=== PATIENT | female | born 1975 | race Caucasian/White ===

== ENCOUNTER → 2020-02-20 09:41 | Outpatient (CLI) | payer OTHER, SELFPAY ==
[2020-02-21 20:30] LABS: COVID19 Sendout Not Detected (Not Detect)
== END ==
PROVIDERS: Visit Provider Nurse Practitioner
DX: Z11.59 Encounter for screening for other viral diseases (principal)
CPT/HCPCS: 87635

== ENCOUNTER → 2020-03-03 13:29 | Outpatient (CLI) | payer OTHER, SELFPAY ==
--- NOTE | 2020-03-03 13:30 | DI.RAD.S_ITS ---
PROCEDURE: XR CERVICAL SPINE 2V OR 3V INDICATIONS: Progressive neck pain TECHNIQUE: 3 view(s) of the cervical spine were acquired. COMPARISON: None. FINDINGS: Bones: No fracture. Cervical ACDF from C5-C7. Expected postoperative alignment. Hardware appears intact. Mild C7 T1 disc space narrowing. Diffuse facet arthropathy. Straightening of the normal lordotic curvature. Soft tissues: No prevertebral soft tissue swelling. IMPRESSION: Postoperative changes as above from C5-C7. Straightening of the normal lordotic curvature. Dictated by: Jesus Dean M.D. on 03/03/2020 at 14:46 Approved by: Jesus Dean M.D. on 03/03/2020 at 14:49
== END ==
PROVIDERS: PCP Family Medicine; Referring Provider Family Medicine; Visit Provider Family Medicine
DX: M54.2 Cervicalgia (principal); G89.29 Other chronic pain; Z98.1 Arthrodesis status
CPT/HCPCS: 72040

== ENCOUNTER → 2020-03-29 14:04 | Outpatient (CLI) | payer OTHER, SELFPAY ==
[2020-03-29 14:51] LABS: Add Manual Diff / Slide Review NO; Basophils Absolute Auto 100 /uL (0-100); Basophils Percent Auto 0.7 % (0-2); Eosinophils Absolute Auto 100 /uL (0-450); Eosinophils Percent Auto 1.4 % (2-4); Hematocrit 40.9 % (36-46); Hemoglobin 13.8 g/dL (12.0-16.0); Lymphocytes Absolute Auto 1800 /uL (1100-4500); Lymphocytes Percent Auto 19.9 % (25-40); Mean Corpuscular HGB Conc 33.6 % (30-36); Mean Corpuscular Hemoglobin 29.5 PG (26-34); Mean Corpuscular Volume 87.9 fL (80-100); Monocytes Absolute Auto 500 /uL (0-900); Monocytes Percent Auto 5.9 % (3-14); Neutrophils Absolute Auto 6600 /uL (1500-7000); Neutrophils Percent Auto 72.1 % (50-75); Platelet Count 354 X10^3/uL (150-400); Red Blood Cell Count 4.66 X10^6/uL (4.0-5.2); Red Cell Distribution Width 13.8 % (11.6-14.8); White Blood Cell Count 9.1 X10^3/uL (4.5-11.0)
[2020-03-29 15:12] LABS: Alanine Aminotransferase 15 IU/L (<35); Albumin 4.3 g/dL (3.5-5.0); Albumin Globulin Ratio 1.4 (1.0-2.8); Alkaline Phosphatase 65 U/L (38-126); Aspartate Aminotransferase 29 IU/L (14-36); BUN Creatinine Ratio 14.7 (6-22); Bilirubin Total 0.3 mg/dL (0.2-1.3); Blood Urea Nitrogen 10 mg/dL (7-17); Calcium 9.6 mg/dL (8.4-10.2); Carbon Dioxide 30 mmol/L (22-32); Chloride 102 mmol/L (98-107); Estimated Glomerular Filt Rate > 60.0 mL/min (>60); Globulin 3.1 g/dL (1.7-4.1); Glucose 89 mg/dL (70-100); HEMOLYSIS < 15 (0-50); Potassium 4.4 mmol/L (3.4-5.1); Sodium 137 mmol/L (137-145); Total Protein 7.4 g/dL (6.3-8.2)
[2020-03-29 15:36] LABS: TSH w/ Reflex to FT4 1.21 uIU/mL (0.47-4.68)
== END ==
PROVIDERS: PCP Family Medicine; Referring Provider Family Medicine; Visit Provider Family Medicine
DX: R53.83 Other fatigue (principal)
CPT/HCPCS: 36415; 80053; 84443; 85025

== ENCOUNTER → 2021-04-03 09:06 | Outpatient (CLI) | payer OTHER, SELFPAY ==
[2021-04-03 09:47] LABS: Add Manual Diff / Slide Review NO; Basophils Absolute Auto 100 /uL (0-100); Basophils Percent Auto 0.8 % (0-2); Eosinophils Absolute Auto 0 /uL (0-450); Eosinophils Percent Auto 0.6 % (2-4); Hematocrit 42.1 % (36-46); Lymphocytes Absolute Auto 1400 /uL (1100-4500); Lymphocytes Percent Auto 15.5 % (25-40); Mean Corpuscular HGB Conc 33.2 % (30-36); Mean Corpuscular Hemoglobin 28.6 PG (26-34); Mean Corpuscular Volume 86.3 fL (80-100); Monocytes Absolute Auto 400 /uL (0-900); Monocytes Percent Auto 4.8 % (3-14); Neutrophils Absolute Auto 6900 /uL (1500-7000); Neutrophils Percent Auto 78.3 % (50-75); Platelet Count 357 X10^3/uL (150-400); Red Blood Cell Count 4.88 X10^6/uL (4.0-5.2); Red Cell Distribution Width 13.9 % (11.6-14.8); White Blood Cell Count 8.7 X10^3/uL (4.5-11.0)
[2021-04-03 10:25] LABS: TSH w/ Reflex to FT4 1.37 uIU/mL (0.47-4.68)
[2021-04-03 10:43] LABS: Alanine Aminotransferase 13 IU/L (<35); Albumin 4.2 g/dL (3.5-5.0); Albumin Globulin Ratio 1.4 (1.0-2.8); Alkaline Phosphatase 75 U/L (38-126); Aspartate Aminotransferase 25 IU/L (14-36); BUN Creatinine Ratio 23.1 (6-22); Bilirubin Total 0.3 mg/dL (0.2-1.3); Blood Urea Nitrogen 18 mg/dL (7-17); Calcium 9.2 mg/dL (8.4-10.2); Carbon Dioxide 26 mmol/L (22-32); Chloride 102 mmol/L (98-107); Cholesterol 182 mg/dL (140-199); Estimated Glomerular Filt Rate > 60.0 mL/min (>60); Globulin 2.9 g/dL (1.7-4.1); Glucose 92 mg/dL (70-100); HDL Cholesterol 47 mg/dL (40-60); HEMOLYSIS < 15 (0-50); LDL Cholesterol Calculated 103 mg/dL (<100); Potassium 4.2 mmol/L (3.4-5.1); Sodium 136 mmol/L (137-145); Total Protein 7.1 g/dL (6.3-8.2); Triglycerides 162 mg/dL (35-150)
== END ==
PROVIDERS: PCP Family Medicine; Referring Provider Family Medicine; Visit Provider Family Medicine
DX: F90.0 Attention-deficit hyperactivity disorder, predominantly inattentive type (principal); E78.5 Hyperlipidemia, unspecified
CPT/HCPCS: 36415; 80053; 80061; 84443; 85025

== ENCOUNTER → 2021-07-07 14:01 | Outpatient (CLI) | payer OTHER, SELFPAY ==
--- NOTE | 2021-07-07 14:02 | DI.MG.S_ITS ---
BILATERAL DIGITAL SCREENING MAMMOGRAM 3D/2D WITH CAD: 07/07/2021 CLINICAL: Routine screening. Comparison is made to exams dated: 06/24/2019 mammogram, 06/10/2017 mammogram, and 03/28/2015 mammogram - outside facility. The tissue of both breasts is heterogeneously dense. This may lower the sensitivity of mammography. Current study was also evaluated with a Computer Aided Detection (CAD) system. No significant masses, calcifications, or other findings are seen in either breast. There has been no significant interval change. IMPRESSION: NEGATIVE There is no mammographic evidence of malignancy. A 1 year screening mammogram is recommended. This exam was interpreted at Station ID: [id number]. NOTE: For mammograms, a report in lay terms will be sent to the patient. Approximately 15% of breast malignancies will not be visualized mammographically. In the management of a palpable breast mass, a negative mammogram must not discourage biopsy of a clinically suspicious lesion. Electronically Signed By: Suleman Cisneros M.D., jr/amrit:07/09/2021 11:28:17 letter sent: Normal Exam ACR BI-RADS Category 1: Negative 3341F
== END ==
PROVIDERS: PCP Family Medicine; Referring Provider Family Medicine; Visit Provider Family Medicine
DX: Z12.31 Encounter for screening mammogram for malignant neoplasm of breast (principal)
CPT/HCPCS: 77063; 77067

== ENCOUNTER → 2021-11-03 07:29 | Outpatient (CLI) | payer OTHER, SELFPAY | PROVIDERS: PCP Family Medicine; Visit Provider Nurse Practitioner Family | DX: J02.9 Acute pharyngitis, unspecified (principal) | CPT/HCPCS: 87070 ==

== ENCOUNTER 2022-05-01 09:56 | Emergency (ER) | payer OTHER, SELFPAY ==
[2022-05-01 10:53] VITALS: BP 139/66; PULSE 82; RESP 16; TEMP 36; O2SAT 98; BMI 25.6
--- NOTE | 2022-05-01 10:59 | DI.RAD.S_ITS ---
PROCEDURE: XR FINGER RT MIN 2V INDICATIONS: crush injury TECHNIQUE: AP hand, 2 views of the 5th digit acquired. COMPARISON: None. FINDINGS: Bones: No fractures or dislocations. No suspicious bony lesions. Soft tissues: No suspicious soft tissue calcifications. Soft tissue swelling 5th digit IMPRESSION: No acute osseous abnormality. If symptoms persist, follow-up radiographs and/or CT may be helpful for further evaluation. Dictated by: Skip Cornelius M.D. on 05/01/2022 at 12:13 Approved by: Skip Cornelius M.D. on 05/01/2022 at 12:16
--- NOTE | 2022-05-01 15:59 | ED.UPPEXIN ---
HPI - Extremity Injury (Upper) <JIMENEZ Wolf - Last Filed: 05/01/22 16:52> General Chief Complaint: Extremity Injury, Upper Stated Complaint: Smashed pinky finger with 1-200 lb rock Time Seen by Provider: 05/01/22 15:10 Source: patient Mode of arrival: Wheelchair History of Present Illness HPI narrative: This is a 46-year-old female who presents to the emergency department after she somehow got her right pinky underneath a 100 lb rock. She states that her tetanus is likely out of date, complains of pain, has intact mobility without any sensation deficit, a laceration on the medial aspect over the D IP joint and bleeding is controlled. She denies any significant medical conditions or history of MRSA. She states that her finger swollen, it hurts, denies any sensation changes. Does not remember when her last tetanus was. Related Data Previous Rx's Medication Instructions Recorded atorvastatin 20 mg tablet 20 mg PO BEDTIME #90 tabs 06/20/21 citalopram 20 mg tablet 40 mg PO DAILY #180 tabs 06/29/21 methocarbamol 750 mg tablet 750 mg PO BEDTIME #30 tabs 07/17/21 hydrocodone 5 mg-acetaminophen 325 1 tab PO BID PRN pain #30 tabs 02/01/22 mg tablet etodolac 400 mg tablet 400 mg PO BID #180 tabs 03/29/22 levonorgestrel 0.15 mg-ethinyl 1 tab PO DAILY #91 ea 04/04/22 estradiol 30 mcg tablets,3 mos pack(91) lisdexamfetamine 50 mg capsule 50 mg PO DAILY #30 caps 04/29/22 (Vyvanse) hydrocodone 5 mg-acetaminophen 325 1 tab PO BID PRN pain #10 tabs 05/01/22 mg tablet ketorolac 10 mg tablet 10 mg PO TID PRN pain #20 tabs 05/01/22 mupirocin 2 % topical ointment 1 applic topical BID #15 grams 05/01/22 Allergies Allergy/AdvReac Type Severity Reaction Status Date / Time Sulfa (Sulfonamide Allergy Severe lips Verified 02/01/22 16:17 Antibiotics) swelling Review of Systems <JIMENEZ Wolf - Last Filed: 05/01/22 16:52> Review of Systems Narrative: Review of systems is negative for acute abnormalities unless otherwise noted in HPI Patient History <JIMENEZ Wolf - Last Filed: 05/01/22 16:52> Medical History ADHD (attention deficit hyperactivity disorder) Arthritis Chronic neck pain Depression Endometriosis Family history of breast cancer gene mutation in first degree relative Fatigue History of Lyme disease Hyperlipidemia Insomnia Pelvic pain Surgical History H/O cervical spine surgery H/O: hysterectomy Family History Father Diabetes mellitus Stroke Osteoarthritis Grandmother Osteoarthritis Heart disease Uterine cancer Sister Depression Fibromyalgia Cancer Social History Smoking Status: Never smoker alcohol intake: never Smoking Status: Never smoker Substance Use Type: does not use Exam <JIMENEZ Wolf - Last Filed: 05/01/22 16:52> Narrative Exam Narrative: Reviewed vitals signs and nursing notes. General: cooperative, comfortable, in no acute distress, well groomed HEENT: symmetrical facial expressions, moist mucous membranes MSK: moves all extremities, neurovascularly intact, no weakness, normal tone, laceration to the medial aspect of her right hand 5th digit over the D IP joint, approximately 1.5 cm, this was thoroughly irrigated with normal saline and cleaned by myself, laceration repair with 4 sutures was completed, patient was splinted in a finger splint in extension for protection, wound was covered with bacitracin. Patient has a brisk cap refill, flexion extension is intact and isolated each joint. Patient is right-handed Skin: brisk capillary refill, without pallor or erythema Neuro: normal speech and cognition, A&O x3, ambulatory, clear speech Psych: mental status is grossly normal, congruent mood, normal affect, pleasant and cooperative Initial Vital Signs Initial Vital Signs: Vital Signs Temperature 96.8 F L 05/01/22 10:53 Pulse Rate 82 05/01/22 10:53 Respiratory Rate 16 05/01/22 10:53 Blood Pressure 139/66 05/01/22 10:53 Pulse Oximetry 98 05/01/22 10:53 Oxygen Delivery Method 05/01/22 10:53 <Leila Wisdom DO - Last Filed: 05/01/22 20:36> Initial Vital Signs Initial Vital Signs: Vital Signs Temperature 96.8 F L 05/01/22 10:53 Pulse Rate 82 05/01/22 10:53 Respiratory Rate 16 05/01/22 10:53 Blood Pressure 139/66 05/01/22 10:53 Pulse Oximetry 98 05/01/22 10:53 Oxygen Delivery Method 05/01/22 10:53 Procedures <JIMENEZ Wolf - Last Filed: 05/01/22 16:52> Laceration Repair Laceration 1: Site: hand Side (If applicable): right Size (cm): 1.5 Description: flap Depth: simple, single layer Local Anesthetic: lidocaine 1% Amount of anesthesia used (mL): 3 Pre-repair: wound explored, irrigated extensively and deep structures intact Skin layer closed with: nylon Skin layer suture size: 5-0 Number of sutures: 4 Technique: simple, interrupted Course <JIMENEZ Wolf - Last Filed: 05/01/22 16:52> Orders Ordered: Discontinued Medications Hydrocodone Bitart/Acetaminophen (Hydrocodone/Acet 5/325 Tablet) 1 tab PO NOW ONE Stop: 05/01/22 15:35 Last Admin: 05/01/22 16:09 Dose: 1 tab Documented By: BT Bacitracin (Bacitracin Oint 0.9 Gm Pckt) 1 applic TOP NOW ONE Stop: 05/01/22 15:37 Last Admin: 05/01/22 16:08 Dose: 1 applic Documented By: BT Diphtheria/Tetanus/Acell Pertussis (Tet,Diph,Pertuss(Acell),Vac/Pf 0.5 Ml Syringe) 0.5 ml IM .ONCE ONE Stop: 05/01/22 15:35 Last Admin: 05/01/22 16:09 Dose: 0.5 ml Documented By: BT Ketorolac Tromethamine (Ketorolac 30 Mg/Ml Vial) 15 mg IM NOW ONE Stop: 05/01/22 15:35 Last Admin: 05/01/22 16:08 Dose: 15 mg Documented By: BT Lidocaine HCl (Lidocaine 2% Inj Sdv) 5 ml INJ INTRA-OP ONE Stop: 05/01/22 15:35 Last Admin: 10/12/22 16:08 Dose: 5 ml Documented By: BT Vital Signs Vital signs: Vital Signs - 8 hr 05/01/22 16:55 Pulse Rate 79 Respiratory Rate 16 Blood Pressure 129/71 Pulse Oximetry 99 Oxygen Delivery Method Room Air <Leila Wisdom DO - Last Filed: 05/01/22 20:36> Orders Ordered: Discontinued Medications Hydrocodone Bitart/Acetaminophen (Hydrocodone/Acet 5/325 Tablet) 1 tab PO NOW ONE Stop: 05/01/22 15:35 Last Admin: 05/01/22 16:09 Dose: 1 tab Documented By: BT Bacitracin (Bacitracin Oint 0.9 Gm Pckt) 1 applic TOP NOW ONE Stop: 05/01/22 15:37 Last Admin: 05/01/22 16:08 Dose: 1 applic Documented By: BT Diphtheria/Tetanus/Acell Pertussis (Tet,Diph,Pertuss(Acell),Vac/Pf 0.5 Ml Syringe) 0.5 ml IM .ONCE ONE Stop: 05/01/22 15:35 Last Admin: 05/01/22 16:09 Dose: 0.5 ml Documented By: BT Ketorolac Tromethamine (Ketorolac 30 Mg/Ml Vial) 15 mg IM NOW ONE Stop: 05/01/22 15:35 Last Admin: 05/01/22 16:08 Dose: 15 mg Documented By: BT Lidocaine HCl (Lidocaine 2% Inj Sdv) 5 ml INJ INTRA-OP ONE Stop: 05/01/22 15:35 Last Admin: 05/01/22 16:08 Dose: 5 ml Documented By: BT Vital Signs Vital signs: Vital Signs - 8 hr 05/01/22 16:55 Pulse Rate 79 Respiratory Rate 16 Blood Pressure 129/71 Pulse Oximetry 99 Oxygen Delivery Method Room Air MDM - Extremity Injury (Upper) <ALEX WolfP - Last Filed: 05/01/22 16:52> Imaging Data Extremity x-ray #1: Radiologist's Impression: PROCEDURE:? XR FINGER RT MIN 2V ? INDICATIONS:? crush injury ? TECHNIQUE:? AP hand, 2 views of the 5th digit? acquired.? ? COMPARISON:? None. ? FINDINGS:? ? Bones:? No fractures or dislocations.? No suspicious bony lesions.? ? Soft tissues:? No suspicious soft tissue calcifications.? Soft tissue swelling 5th digit ? IMPRESSION:? No acute osseous abnormality.? If symptoms persist, follow-up radiographs and/or CT may be helpful for further evaluation. ? ? Dictated by: Skip Cornelius M.D. on 05/01/2022 at 12:13 ? ? Approved by: Skip Cornelius M.D. on 05/01/2022 at 12:16 ? [facility] Narrative Medical decision making narrative: This is a 46-year-old female patient with a crush injury to her right hand little finger over the D IP joint, laceration was not avulsion with a superficial flap, this was mildly debrided and wound closure was completed with nylon sutures. Patient received 4 sutures, repair was uncomplicated, she received a tetanus vaccination, x-ray was negative for foreign body or acute fracture. Patient is right-handed, given topical mupirocin ointment and Toradol with Tylenol for pain. Encouraged to return if she has any redness or streaking up her hand, worsening signs of pain, her finger was splinted in a finger splint after wound was dressed with bacitracin and a nonstick dressing. Patient understands her discharge instructions and will return for any worsening. <Leila Wisdom, DO - Last Filed: 05/01/22 20:36> [facility] Narrative Medical decision making narrative: This is a 46-year-old female patient with a crush injury to her right hand little finger over the D IP joint, laceration was not avulsion with a superficial flap, this was mildly debrided and wound closure was completed with nylon sutures. Patient received 4 sutures, repair was uncomplicated, she received a tetanus vaccination, x-ray was negative for foreign body or acute fracture. Patient is right-handed, given topical mupirocin ointment and Toradol with Tylenol for pain. Encouraged to return if she has any redness or streaking up her hand, worsening signs of pain, her finger was splinted in a finger splint after wound was dressed with bacitracin and a nonstick dressing. Patient understands her discharge instructions and will return for any worsening. Discharge Plan Departure Patient Disposition: Home Clinical Impression: Laceration Crush injury to finger Qualifiers: Encounter type: initial encounter Qualified Code(s): S67.10XA - Crushing injury of unspecified finger(s), initial encounter Instructions: DI for Laceration Repair -- Finger Activity Restrictions/Additional Instructions: *You have been diagnosed with a crush injury to your right little finger without evidence of fracture or foreign body on x-ray. You have 4 sutures in your right little finger, please keep this covered with a nonstick dressing, you may use a Band-Aid with antibiotic ointment after today, please wounds with gentle cleanser a.m. and p.m. and keep it covered with at least a Band-Aid at all times. You can use the finger splint to prevent worsening injury of the tissue where the injury is. Please have your sutures removed in 10 days, return for any redness or streaking up your hand, concerns for infection, or other symptom. Thank you for your patients, your tetanus was updated today, please use Toradol every 8 hours with food and water instead of ibuprofen for pain, take her hydrocodone as needed. *What to do: *Please continue to take your regular medications as directed. [ x] New medication prescriptions sent to your pharmacy: [[facility] ] [ ] New medication written as a paper prescription [ ] No new medications given *Please follow up with your primary care provider in 2-3 days, call for an appointment. Let them know you were seen in the Emergency Department and that we asked that you be seen for follow-up. We will electronically transmit a record of today's note if your PCP is in our system *If you do not have a primary care provider please contact [phone] to establish care with one of the [facility] primary care providers. *Return to Emergency Department if you should have any new, worsening, or concerning symptoms, such as [fever greater than 101F, chills, worsening pain, persistent vomiting or other bothersome symptoms]. Prescriptions: New hydrocodone-acetaminophen 5-325 mg tablet 1 tab PO BID PRN (Reason: pain) Qty: 10 0RF ketorolac 10 mg tablet 10 mg PO TID PRN (Reason: pain) Qty: 20 0RF mupirocin 2 % ointment 1 applic topical BID Qty: 15 0RF No Action citalopram 20 mg tablet 40 mg PO DAILY Qty: 180 1RF methocarbamol 750 mg tablet 750 mg PO BEDTIME Qty: 30 2RF etodolac 400 mg tablet 400 mg PO BID Qty: 180 1RF levonorgestrel-ethinyl estrad 0.15 mg-30 mcg (91) tablets,dose pack,3 month 1 tab PO DAILY Qty: 91 2RF Vyvanse 50 mg capsule 50 mg PO DAILY Qty: 30 0RF atorvastatin 20 mg tablet 20 mg PO BEDTIME Qty: 90 3RF hydrocodone-acetaminophen 5-325 mg tablet 1 tab PO BID PRN (Reason: pain) Qty: 30 0RF Referrals: Rocael Villanueva DO [Primary Care Provider] - Visit Report Forms: Patient Portal/API
[2022-05-01] MEDS: KETOROLAC 30 MG/ML VIAL 15 MG IM (16:08)
[2022-05-01] MEDS: BACITRACIN OINT 0.9 GM PCKT 1 APPLIC TOP (16:08)
[2022-05-01] MEDS: LIDOCAINE 2% INJ SDV 5 ML INJ (16:08)
[2022-05-01] MEDS: TET,DIPH,PERTUSS(ACELL),VAC/PF 0.5 ML SYRINGE IM (16:09)
[2022-05-01] MEDS: HYDROCODONE/ACET 5/325 TABLET 1 TAB PO (16:09)
[2022-05-01 16:55] VITALS: BP 129/71; PULSE 79; RESP 16; O2SAT 99
== END 2022-05-01 16:57 | disposition home or self-care (01) ==
PROVIDERS: Emergency Provider Nurse Practitioner Critical Care Medicine; PCP Family Medicine
DX: S61.216A Laceration without foreign body of right little finger without damage to nail, initial encounter (principal); S67.10XA Crushing injury of unspecified finger(s), initial encounter; Z23 Encounter for immunization
CPT/HCPCS: 12001; 29130; 73140; 90471; 96372; 99283; 99284; 90715; J1885

== ENCOUNTER → 2022-07-09 10:27 | Outpatient (CLI) | payer OTHER, SELFPAY ==
--- NOTE | 2022-07-09 10:28 | DI.MG.S_ITS ---
BILATERAL DIGITAL SCREENING MAMMOGRAM 3D/2D WITH CAD: 07/09/2022 CLINICAL: Routine screening. Family history of breast cancer. Comparison is made to exams dated: 07/07/2021 mammogram - [facility], 06/24/2019 mammogram, 06/10/2017 mammogram, and 03/28/2015 mammogram - outside facility. Both breasts are heterogeneously dense, which may obscure small masses (category c / 51-75% glandular tissue). Current study was also evaluated with a Computer Aided Detection (CAD) system. No significant masses, calcifications, or other findings are seen in either breast. There has been no significant interval change. IMPRESSION: NEGATIVE There is no mammographic evidence of malignancy. A 1 year screening mammogram is recommended. Based on Tyrer-Cuzick model (a risk assessment model), the patient's lifetime risk is 22.4% and her 10 year risk is 4.1%. If a patient has an elevated risk, a more comprehensive evaluation should be considered and/or a referral to a genetic counselor. The [place] [employer], [place] [employer], and NCCN Guidelines advise the consideration of Breast MRI as an adjunct to screening mammography in patients whose Lifetime risk to develop breast cancer is 20% or higher. This exam was interpreted at Station ID: [id number]. NOTE: For mammograms, a report in lay terms will be sent to the patient. Approximately 15% of breast malignancies will not be visualized mammographically. In the management of a palpable breast mass, a negative mammogram must not discourage biopsy of a clinically suspicious lesion. Electronically Signed By: Ron alfonso/amrit:07/09/2022 12:07:41 letter sent: Normal Exam ACR BI-RADS Category 1: Negative [id number]
== END ==
PROVIDERS: PCP Family Medicine; Referring Provider Family Medicine; Visit Provider Family Medicine
DX: Z12.31 Encounter for screening mammogram for malignant neoplasm of breast (principal); Z84.81 Family history of carrier of genetic disease; Z80.3 Family history of malignant neoplasm of breast
CPT/HCPCS: 77063; 77067

== ENCOUNTER 2022-10-01 15:30 | Emergency (ER) | payer OTHER, SELFPAY ==
[2022-10-01 15:43] VITALS: BP 167/82; PULSE 92; RESP 16; TEMP 37.3; O2SAT 100; BMI 25.6
--- NOTE | 2022-10-01 15:47 | DI.RAD.S_ITS ---
PROCEDURE: XR CHEST 1V INDICATIONS: chest pain TECHNIQUE: One view of the chest was acquired. COMPARISON: None. FINDINGS: Surgical changes and devices: None. Lungs and pleura: Lungs are clear. No pleural effusions or pneumothorax. Mediastinum: Mediastinal contours appear normal. Heart size is normal. Bones and chest wall: No suspicious bony lesions. Overlying soft tissues appear unremarkable. IMPRESSION: No acute cardiopulmonary process demonstrated radiographically. Dictated by: Suleman Cisneros M.D. on 10/01/2022 at 17:38 Approved by: Suleman Cisneros M.D. on 10/01/2022 at 17:39
[2022-10-01 16:02] LABS: Add Manual Diff / Slide Review NO; Basophils Absolute Auto 100 /uL (0-100); Basophils Percent Auto 0.5 % (0-2); Eosinophils Absolute Auto 100 /uL (0-450); Eosinophils Percent Auto 1.5 % (2-4); Hematocrit 40.4 % (36-46); Hemoglobin 13.9 g/dL (12.0-16.0); Lymphocytes Absolute Auto 2500 /uL (1100-4500); Lymphocytes Percent Auto 25.5 % (25-40); Mean Corpuscular HGB Conc 34.3 % (30-36); Mean Corpuscular Hemoglobin 29.6 PG (26-34); Mean Corpuscular Volume 86.4 fL (80-100); Monocytes Absolute Auto 600 /uL (0-900); Neutrophils Absolute Auto 6400 /uL (1500-7000); Neutrophils Percent Auto 66.5 % (50-75); Platelet Count 389 X10^3/uL (150-400); Red Blood Cell Count 4.68 X10^6/uL (4.0-5.2); White Blood Cell Count 9.7 X10^3/uL (4.5-11.0)
[2022-10-01 16:07] LABS: Prothrombin Time 11.3 SECONDS (10.1-12.7)
[2022-10-01 16:10] LABS: PTT Partial Thromboplastin Tim 28 SECONDS (26-36)
[2022-10-01 16:12] LABS: Alanine Aminotransferase 18 IU/L (<35); Albumin 4.3 g/dL (3.5-5.0); Albumin Globulin Ratio 1.3 (1.0-2.8); Alkaline Phosphatase 64 U/L (38-126); Aspartate Aminotransferase 27 IU/L (14-36); BUN Creatinine Ratio 16.7 (6-22); Bilirubin Total 0.4 mg/dL (0.2-1.3); Blood Urea Nitrogen 12 mg/dL (7-17); Calcium 8.7 mg/dL (8.4-10.2); Carbon Dioxide 23 mmol/L (22-32); Chloride 104 mmol/L (98-107); Creatine Kinase 136 U/L (30-135); Estimated Glomerular Filt Rate > 60 mL/min (>60); Globulin 3.2 g/dL (1.7-4.1); Glucose 82 mg/dL (70-100); HEMOLYSIS < 15 (0-50); Lipase 1848 U/L (23-300); Magnesium 2.2 mg/dL (1.6-2.3); Potassium 3.6 mmol/L (3.4-5.1); Sodium 136 mmol/L (137-145); Total Protein 7.5 g/dL (6.3-8.2)
[2022-10-01 16:23] LABS: Troponin I < 0.012 ng/mL (0.01-0.034)
[2022-10-01 16:26] LABS: CKMB % Relative Index 0.4 % (1.5-5.0); Creatine Kinase MB 0.58 ng/mL (<2.37)
--- NOTE | 2022-10-01 17:37 | PC.NURSE ---
pt VDC wanted IV out took IV out pt tolerated procedure well
== END 2022-10-01 17:35 | disposition left against medical advice (07) ==
PROVIDERS: Emergency Provider Emergency Medicine; PCP Family Medicine
DX: R07.9 Chest pain, unspecified (principal); M54.2 Cervicalgia; R06.02 Shortness of breath
CPT/HCPCS: 36415; 71045; 80053; 82550; 82553; 83690; 83735; 84484; 85025; 85610; 85730; 93005; 93010; 99283

== ENCOUNTER → 2022-10-03 09:13 | Outpatient (CLI) | payer OTHER, SELFPAY ==
[2022-10-03 09:54] LABS: Add Manual Diff / Slide Review NO; Basophils Absolute Auto 0 /uL (0-100); Basophils Percent Auto 0.5 % (0-2); Eosinophils Absolute Auto 100 /uL (0-450); Eosinophils Percent Auto 0.8 % (2-4); Hematocrit 41.9 % (36-46); Hemoglobin 14.4 g/dL (12.0-16.0); Lymphocytes Absolute Auto 1300 /uL (1100-4500); Lymphocytes Percent Auto 14.7 % (25-40); Mean Corpuscular HGB Conc 34.3 % (30-36); Mean Corpuscular Hemoglobin 29.8 PG (26-34); Mean Corpuscular Volume 86.9 fL (80-100); Monocytes Absolute Auto 400 /uL (0-900); Monocytes Percent Auto 4.9 % (3-14); Neutrophils Absolute Auto 7000 /uL (1500-7000); Neutrophils Percent Auto 79.1 % (50-75); Platelet Count 383 X10^3/uL (150-400); Red Blood Cell Count 4.82 X10^6/uL (4.0-5.2); Red Cell Distribution Width 13.8 % (11.6-14.8); White Blood Cell Count 8.9 X10^3/uL (4.5-11.0)
[2022-10-03 10:17] LABS: Alanine Aminotransferase 17 IU/L (<35); Albumin 4.3 g/dL (3.5-5.0); Albumin Globulin Ratio 1.3 (1.0-2.8); Alkaline Phosphatase 68 U/L (38-126); Aspartate Aminotransferase 26 IU/L (14-36); Bilirubin Total 0.4 mg/dL (0.2-1.3); Blood Urea Nitrogen 14 mg/dL (7-17); Calcium 8.9 mg/dL (8.4-10.2); Carbon Dioxide 28 mmol/L (22-32); Chloride 103 mmol/L (98-107); Estimated Glomerular Filt Rate > 60 mL/min (>60); Globulin 3.3 g/dL (1.7-4.1); Glucose 92 mg/dL (70-100); HEMOLYSIS < 15 (0-50); Lipase 1133 U/L (23-300); Potassium 4.2 mmol/L (3.4-5.1); Sodium 137 mmol/L (137-145); Total Protein 7.6 g/dL (6.3-8.2)
== END ==
PROVIDERS: PCP Family Medicine; Referring Provider Family Medicine; Visit Provider Family Medicine
DX: K85.90 Acute pancreatitis without necrosis or infection, unspecified (principal); R53.83 Other fatigue
CPT/HCPCS: 36415; 80053; 83690; 85025

== ENCOUNTER → 2022-10-04 08:40 | Outpatient (CLI) | payer OTHER, SELFPAY ==
--- NOTE | 2022-10-04 08:41 | DI.US.S_ITS ---
PROCEDURE: US ABDOMEN COMPLETE INDICATIONS: ELEVATE LIPASE, ACUTE PANCREATITIS TECHNIQUE: Real-time scanning was performed of the abdominal and retroperitoneal organs, with image documentation. COMPARISON: None. FINDINGS: Liver: Liver is normal in size and homogeneous in echotexture. Gallbladder: No gallstones, wall thickening, or sonographic Moreira sign. Biliary ducts: Intrahepatic bile ducts are non-dilated. Extrahepatic bile duct caliber measures 3 mm. Normal is 6-7 mm or less in diameter, or 10 mm or less post-cholecystectomy. Pancreas: Visualized portions of the pancreas are sonographically normal. Spleen: Spleen is normal in size and homogeneous in echotexture. Kidneys: Kidneys are normal in size and echotexture. Right kidney measures 9.5 cm long; left kidney measures 10.1 cm long. No hydronephrosis or nephrolithiasis. No solid masses. Aorta: Visualized aorta is normal in caliber at less than 3 cm. Iliacs: Proximal common iliac arteries are normal in caliber at less than 2.5 cm. IVC: Intrahepatic inferior vena cava is patent. Miscellaneous: No free abdominal fluid. IMPRESSION: Unremarkable abdominal ultrasound. Dictated by: Skip Cornelius M.D. on 10/04/2022 at 9:41 Approved by: Skip Cornelius M.D. on 10/04/2022 at 9:49
== END ==
PROVIDERS: PCP Family Medicine; Referring Provider Family Medicine; Visit Provider Family Medicine
DX: K85.90 Acute pancreatitis without necrosis or infection, unspecified (principal)
CPT/HCPCS: 76700

== ENCOUNTER 2022-10-10 12:22 | Emergency (ER) | payer OTHER, SELFPAY ==
[2022-10-10] VITALS (8 sets, daily range): BP systolic 107–144; BP diastolic 66–81; PULSE 64–95; RESP 16–17; TEMP 36.4; O2SAT 97–100; BMI 25.6
--- NOTE | 2022-10-10 13:01 | DI.CT.S_ITS ---
PROCEDURE: CT ABDOMEN PELVIS W CON INDICATIONS: abd pain, pancreatitis TECHNIQUE: After the administration of oral and IV contrast, axial sections were acquired from the lung bases to the pubic symphysis. Coronal and sagittal reformats were performed. For radiation dose reduction, the following was used: automated exposure control, adjustment of mA and/or kV according to patient size. COMPARISON: [facility], , US ABDOMEN COMPLETE, 10/04/2022, 8:55. FINDINGS: Image quality: Excellent. Lung bases: Unremarkable. Heart: No significant findings. ABDOMEN: Liver: Unremarkable. Gallbladder: Unremarkable. Biliary ducts: Unremarkable. Pancreas: Unremarkable. Spleen: Unremarkable. Adrenal Glands: Unremarkable. Kidneys and Ureters: Suspect small 1-2 mm nonobstructive renal calculi bilaterally. No hydronephrosis. Kidneys are normal in size and enhance symmetrically. Stomach and Bowel: Stomach, small bowel loops, and colon are normal in caliber. There is a moderate amount of stool in colon. Peritoneum: No abnormal intraperitoneal fluid. No free air. Ventral Wall: No hernia. Abdominal Nodes: No retroperitoneal or mesenteric adenopathy by size criteria. Vessels: Aorta and inferior vena cava are normal in size. PELVIS: Pelvic Organs: There are several enhancing nodules in uterus, most likely uterine fibroids. Bladder: Unremarkable. Pelvic Nodes: No enlarged lymph nodes. Miscellaneous: No inguinal hernias are seen. Bones: There is a small indeterminate sclerotic focus in the superior endplate of T11. IMPRESSION: 1. Normal CT appearance of pancreas, which does not exclude clinical pancreatitis. No findings to suggest pancreatic necrosis. No pancreatic duct dilation, calcification or pseudocysts. 2. Suspect bilateral small nonobstructive renal calculi. 3. A moderate amount of stool in colon. 4. Enhancing nodules injuries are most likely uterine fibroids. Dictated by: Eliane Klein M.D. on 10/10/2022 at 13:21 Approved by: Eliane Klein M.D. on 10/10/2022 at 13:26
[2022-10-10 13:03] LABS: Add Manual Diff / Slide Review NO; Basophils Absolute Auto 100 /uL (0-100); Basophils Percent Auto 0.7 % (0-2); Eosinophils Absolute Auto 100 /uL (0-450); Eosinophils Percent Auto 1.2 % (2-4); Hematocrit 39.7 % (36-46); Hemoglobin 13.5 g/dL (12.0-16.0); Lymphocytes Absolute Auto 2200 /uL (1100-4500); Lymphocytes Percent Auto 23.6 % (25-40); Mean Corpuscular Hemoglobin 29.5 PG (26-34); Mean Corpuscular Volume 86.7 fL (80-100); Monocytes Absolute Auto 500 /uL (0-900); Monocytes Percent Auto 5.6 % (3-14); Neutrophils Absolute Auto 6300 /uL (1500-7000); Neutrophils Percent Auto 68.9 % (50-75); Platelet Count 357 X10^3/uL (150-400); Red Blood Cell Count 4.58 X10^6/uL (4.0-5.2); Red Cell Distribution Width 13.8 % (11.6-14.8); White Blood Cell Count 9.2 X10^3/uL (4.5-11.0)
[2022-10-10 13:15] LABS: Alanine Aminotransferase 16 IU/L (<35); Albumin Globulin Ratio 1.3 (1.0-2.8); Alkaline Phosphatase 56 U/L (38-126); Aspartate Aminotransferase 23 IU/L (14-36); BUN Creatinine Ratio 15.2 (6-22); Bilirubin Total 0.3 mg/dL (0.2-1.3); Blood Urea Nitrogen 10 mg/dL (7-17); Calcium 8.4 mg/dL (8.4-10.2); Carbon Dioxide 26 mmol/L (22-32); Chloride 103 mmol/L (98-107); Estimated Glomerular Filt Rate > 60 mL/min (>60); Globulin 3.1 g/dL (1.7-4.1); Glucose 131 mg/dL (70-100); HEMOLYSIS < 15 (0-50); Lipase 148 U/L (23-300); Potassium 3.6 mmol/L (3.4-5.1); Sodium 136 mmol/L (137-145); Total Protein 7.1 g/dL (6.3-8.2)
[2022-10-10 13:19] LABS: Ictotest Urine Positive (Negative)
[2022-10-10] MEDS: SODIUM CHLORIDE 0.9% 500 ML 1000 ML IV (14:13)
[2022-10-10] MEDS: METOCLOPRAMIDE 10 MG/2 ML INJ IV (14:13)
--- NOTE | 2022-10-14 21:36 | ED.ABDPAIN ---
HPI - Abdominal Pain General Chief Complaint: Abdominal Pain Stated Complaint: Thinks blockage Time Seen by Provider: 10/10/22 12:55 Source: patient Mode of arrival: Ambulatory History of Present Illness HPI narrative: 47-year-old female presenting with abdominal pain in the setting of recently diagnosed pancreatitis. Patient reports persistent diffuse upper abdominal pain, intermittent nausea and vomiting, no measured fevers, some abdominal bloating. Patient has had stools up until today. Related Data Previous Rx's Medication Instructions Recorded citalopram 20 mg tablet 40 mg PO DAILY #180 tabs 05/15/22 methocarbamol 750 mg tablet 750 mg PO BEDTIME #30 tabs 05/17/22 atorvastatin 20 mg tablet 20 mg PO BEDTIME #90 tabs 06/25/22 etodolac 400 mg tablet 400 mg PO BID #180 tabs 06/25/22 hydrocodone 5 mg-acetaminophen 325 1 tab PO BID PRN pain #30 tabs 07/23/22 mg tablet levonorgestrel 0.15 mg-ethinyl 1 tab PO DAILY #91 ea 09/20/22 estradiol 30 mcg tablets,3 mos pack(91) lisdexamfetamine 50 mg capsule 50 mg PO DAILY #30 caps 10/01/22 (Vyvanse) ondansetron HCl 8 mg tablet 8 mg PO Q12H PRN nausea and 10/07/22 vomiting #20 tabs Allergies Allergy/AdvReac Type Severity Reaction Status Date / Time Sulfa (Sulfonamide Allergy Severe lips Verified 10/10/22 12:25 Antibiotics) swelling Patient History Medical History ADHD (attention deficit hyperactivity disorder) Arthritis Chronic neck pain Depression Endometriosis Family history of breast cancer gene mutation in first degree relative Fatigue History of Lyme disease Hyperlipidemia Insomnia Keloid scar Pancreatitis, acute Pelvic pain Surgical History H/O cervical spine surgery H/O: hysterectomy Family History Father Diabetes mellitus Stroke Osteoarthritis Grandmother Osteoarthritis Heart disease Uterine cancer Sister Depression Fibromyalgia Cancer Social History Smoking Status: Never smoker alcohol intake: never Smoking Status: Never smoker alcohol intake frequency: holidays/special occasions only Substance Use Type: does not use Exam Narrative Exam Narrative: Vitals reviewed. Nursing note reviewed Constitutional: interactive HENT: Moist mucous membranes EYES: No scleral icterus NECK: no masses CV: Well perfused peripherally, no cyanosis present PULM: Unlabored respirations, symmetric chest rise ABD: Non-distended MS: No gross deformities, no asymmetric edema noted SKIN: Warm and dry. PSYCH: Appropriate affect NEURO: Follows simple commands, moves extremities, interactive with exam Initial Vital Signs Initial Vital Signs: Vital Signs Temperature 97.6 F 10/10/22 12:25 Pulse Rate 95 H 10/10/22 12:25 Respiratory Rate 16 10/10/22 12:25 Blood Pressure 144/76 H 10/10/22 12:25 Pulse Oximetry 100 10/10/22 12:25 Oxygen Delivery Method Room Air 10/10/22 12:25 Course Orders Ordered: Discontinued Medications Sodium Chloride (Normal Saline 0.9%) 500 mls @ 1,000 mls/hr IV BOLUS ONE Stop: 10/10/22 14:21 Last Infusion: 10/10/22 15:00 Dose: 0 mls/hr Documented By: Admin: 10/10/22 14:13 Dose: 1,000 mls/hr Documented By: RB Metoclopramide HCl (Metoclopramide 10 Mg/2 Ml Inj) 10 mg IV NOW ONE Stop: 10/10/22 13:53 Last Admin: 10/10/22 14:13 Dose: 10 mg Documented By: CORY Ondansetron HCl (Ondansetron 4 Mg/2 Ml Inj) 4 mg IV NOW PRN PRN Reason: Nausea And Vomiting MDM - Abdominal Pain Lab Data 10/10/22 12:35 10/10/22 12:35 Labs: Lab Results 10/10/22 10/10/22 10/10/22 Range/Units 12:35 12:35 12:43 WBC 9.2 (4.5-11.0) X10^3/uL RBC 4.58 (4.0-5.2) X10^6/uL Hgb 13.5 (12.0-16.0) g/dL Hct 39.7 (36-46) % MCV 86.7 (80-100) fL MCH 29.5 (26-34) PG MCHC 34.0 (30-36) % RDW 13.8 (11.6-14.8) % Plt Count 357 (150-400) X10^3/uL Neut % (Auto) 68.9 (50-75) % Lymph % (Auto) 23.6 L (25-40) % [place] % (Auto) 5.6 (3-14) % Eos % (Auto) 1.2 L (2-4) % Baso % (Auto) 0.7 (0-2) % Neut # (Auto) 6300 (3405-1089) /uL Lymph # (Auto) 2200 (3841-8701) /uL [place] # (Auto) 500 (0-900) /uL Eos # (Auto) 100 (0-450) /uL Baso # (Auto) 100 (0-100) /uL Sodium 136 L (137-145) mmol/L Potassium 3.6 (3.4-5.1) mmol/L Chloride 103 (98-107) mmol/L Carbon Dioxide 26 (22-32) mmol/L BUN 10 (7-17) mg/dL Creatinine 0.66 (0.52-1.04) mg/dL Estimated GFR > 60 (>60) mL/min BUN/Creatinine Ratio 15.2 (6-22) Glucose 131 H (70-100) mg/dL Calcium 8.4 (8.4-10.2) mg/dL Total Bilirubin 0.3 (0.2-1.3) mg/dL AST 23 (14-36) IU/L ALT 16 (<35) IU/L Alkaline Phosphatase 56 (38-126) U/L Total Protein 7.1 (6.3-8.2) g/dL Albumin 4.0 (3.5-5.0) g/dL Globulin 3.1 (1.7-4.1) g/dL Albumin/Globulin Ratio 1.3 (1.0-2.8) Lipase 148 D (23-300) U/L Ur Bilirubin Confirm Positive H (Negative) Point of care testing: Point of Care Testing Test Results Negative Urine Dip Bedside Urine Glucose Negative Bedside Urine Bilirubin +++ 4 Bedside Urine Ketone - Negative Urine Specific [place] 1.010 Bedside Urine Occult Blood - Negative Bedside Urine pH 6.5 Bedside Urine Protein - Negative Bedside Urine Urobilinogen - Negative Bedside Urine Nitrite - Negative Bedside Urine Leukocytes - Negative Esterase MDM Narrative Medical decision making narrative: 47-year-old female presenting with abdominal pain in the setting of recently diagnosed pancreatitis. On presentation, vital signs reassuring. Physical exam notable for alert and interactive 47-year-old female who is in no acute distress, reassuring cardiopulmonary exam, benign abdomen. Initial concern for recurrent pancreatitis, biliary pathology, peptic ulcer disease/gastritis, electrolyte derangement, metabolic abnormality, occult sepsis. Broad screening labs were obtained and notable for normalization of the patient's lipase, no leukocytosis or significant left shift, grossly reassuring CMP. CT imaging was obtained to further evaluate for acute emergent intra-abdominal pathology in the setting of recent pancreatitis, this is reassuring without evidence of emergent pathology. Discussed findings with patient at bedside. Patient's symptoms were controlled with IV pain medications and on repeat assessment, patient with significant improvement in symptoms. Discussed plan for discharge and close outpatient follow up. Patient was instructed to maintain a low threshold to return to the emergency department and follow up closely Discharge Plan Departure Patient Disposition: Home Clinical Impression: Abdominal pain Instructions: Acute Abdominal Pain Activity Restrictions/Additional Instructions: *You have been diagnosed with [ ] *What to do: *Please follow up with your primary care provider in 2-3 days, call for an appointment. Let them know you were seen in the Emergency Department and that we ask that you be seen in follow up. We will electronically transmit a record of today's note if your PCP is in our system *If you do not have a primary care provider please contact the [facility] Resource line at [phone]. They will ask some questions about your medical history and help get you set up with a doctor in the community. *Return to Emergency Department if you should have any new, worsening or concerning symptoms, such as [fever greater than 101 F, shaking chills, worsening pain, persistent vomiting or other bothersome symptoms] Prescriptions: No Action citalopram 20 mg tablet 40 mg PO DAILY Qty: 180 1RF methocarbamol 750 mg tablet 750 mg PO BEDTIME Qty: 30 2RF atorvastatin 20 mg tablet 20 mg PO BEDTIME Qty: 90 3RF etodolac 400 mg tablet 400 mg PO BID Qty: 180 1RF hydrocodone-acetaminophen 5-325 mg tablet 1 tab PO BID PRN (Reason: pain) Qty: 30 0RF levonorgestrel-ethinyl estrad 0.15 mg-30 mcg (91) tablets,dose pack,3 month 1 tab PO DAILY Qty: 91 2RF Vyvanse 50 mg capsule 50 mg PO DAILY Qty: 30 0RF ondansetron HCl 8 mg tablet 8 mg PO Q12H PRN (Reason: nausea and vomiting) Qty: 20 0RF Referrals: Rocael Villanueva DO [Primary Care Provider] - Stand Alone Forms: Patient Portal/API
== END 2022-10-10 15:49 | disposition home or self-care (01) ==
PROVIDERS: Emergency Provider Emergency Medicine; PCP Family Medicine
DX: R10.10 Upper abdominal pain, unspecified (principal); R11.2 Nausea with vomiting, unspecified
CPT/HCPCS: 36415; 74177; 80053; 81003; 81025; 83690; 85025; 93005; 93010; 96361; 96374; 99284; J2765; Q9967

== ENCOUNTER → 2022-12-04 10:01 | Outpatient (CLI) | payer OTHER, SELFPAY ==
[2022-12-04 11:42] LABS: Cholesterol 196 mg/dL (140-199); HDL Cholesterol 46 mg/dL (40-60); LDL Cholesterol Calculated 125 mg/dL (<100); Triglycerides 123 mg/dL (35-150)
[2022-12-05 18:43] LABS: IgG Subclass 1 484 mg/dL (248-810); IgG Subclass 2 303 mg/dL (130-555); IgG Subclass 3 30 mg/dL (15-102); IgG Subclass 4 31 mg/dL (2-96); IgG Total 916 mg/dL (586-1602)
[2022-12-08 18:22] LABS: ANA Screen, IFA Negative (.)
== END ==
PROVIDERS: PCP Family Medicine; Referring Provider Internal Medicine Gastroenterology; Visit Provider Internal Medicine Gastroenterology
DX: R19.8 Other specified symptoms and signs involving the digestive system and abdomen (principal); K62.5 Hemorrhage of anus and rectum; R10.9 Unspecified abdominal pain; K85.90 Acute pancreatitis without necrosis or infection, unspecified
CPT/HCPCS: 36415; 80061; 82784; 82787; 86038

== ENCOUNTER → 2023-01-17 19:08 | Outpatient (CLI) | payer OTHER, SELFPAY ==
--- NOTE | 2023-01-17 19:09 | DI.MRI.S_ITS ---
PROCEDURE: MR AB PANCREATIC/MRCP PROTOCOL INDICATIONS: acute pancreatitis without necrosis TECHNIQUE: Coronal HASTE through the abdomen, axial 2-D FLASH in- and [id number], and breath-hold T2 FSE with fat saturation through the biliary system and pancreas. Oblique coronal and axial thin-slice HASTE, radial thick-slab HASTE centered on the extrahepatic bile ducts. COMPARISON: [facility], CT, CT ABDOMEN PELVIS W CON, 10/10/2022, 13:07. FINDINGS: Image quality: Excellent. Pancreas and biliary system: Intra- and extra-hepatic biliary ducts are non dilated. Pancreas is normal in morphology, without adjacent soft tissue edema. Intrinsic T1 signal of the pancreas appears normal. Uniform enhancement. Pancreatic duct is normal in caliber, without developmental anomalies. Gallbladder is not distended. No gallstones identified. Other solid organs: Liver is prominent in size. Spleen is normal in size. No adrenal nodules. Both kidneys are normal in size, without hydronephrosis. Nodes and vessels: No retroperitoneal or mesenteric adenopathy by size criteria. Aorta and inferior vena cava are normal in size. Bowel and peritoneum: Thickened loops of small bowel in the left abdomen, (5/27). No restricted diffusion. Enhancement appears to be within normal limits. No free fluid. Lung bases: No basal pleural effusions. Heart size is normal. Bones and soft tissues: No ventral hernias. Bone marrow is of normal overall signal. IMPRESSION: 1. No imaging signs of pancreatitis demonstrated. No peripancreatic fluid collection. 2. No pancreatic or biliary ductal dilatation. 3. Thickened loops of small bowel in the left abdomen are suspected. No edema or restricted diffusion. This could represent an enteritis. Dictated by: Ron Solis M.D. on 01/17/2023 at 22:32 Approved by: Ron Solis M.D. on 01/17/2023 at 22:40
== END ==
PROVIDERS: PCP Family Medicine; Referring Provider Internal Medicine Gastroenterology; Visit Provider Internal Medicine Gastroenterology
DX: K85.90 Acute pancreatitis without necrosis or infection, unspecified (principal)
CPT/HCPCS: 74183; A9579

== ENCOUNTER 2023-01-22 08:42 | Day surgery (SDC) | payer OTHER, SELFPAY ==
--- NOTE | 2023-01-22 | PATH_ITS ---
[facility] Accession Number: [id number] No. of containers..06 Tissue . 01 Material submitted: . PART A: duodenum - DUODENUM PART B: stomach - ANTRUM PART C: esophagus, E-G Junction - GEJ PART D: esophagus - MID ESOPHAGUS PART E: colon - TRANSVERSE EROSIONS PART F: colon - SIGMOID . 01 Diagnosis: A. Duodenum, Biopsy: Duodenal mucosa with no diagnostic abnormality. Negative for active inflammation, features of sprue, dysplasia, or malignancy. . B. Stomach, Antrum, Biopsy: Antral mucosa with mild chronic gastritis and reactive epithelial changes. Negative for Helicobacter by immunohistochemistry. Negative for intestinal metaplasia. Negative for dysplasia and malignancy. . C. Gastroesophageal Junction, Biopsy: Squamocolumnar junctional mucosa with chronic active inflammation. Negative for intestinal metaplasia by alcian blue stain. Negative for dysplasia and malignancy. . D. Mid Esophagus, Biopsy: Squamous epithelium with no diagnostic abnormality. Intraepithelial eosinophils are not increased. Negative for dysplasia and malignancy. . E. Transverse Colon, Erosions, Biopsy: Minimally active colitis with superficial erosion. Please see comment. Negative for granulomas, dysplasia, and malignancy. . F. Sigmoid Colon, Biopsy: Mildly extravasated red blood cells in the lamina propria. Negative for active, chronic, and microscopic colitis. Negative for dysplasia and malignancy. [facility] 01/29/2023 1554 Local . 01 Comment: E. The transverse colon shows minimal neutrophilic activity with superficial erosion, and the sigmoid biopsies show mildly extravasated red blood cells in the lamina propria. These mild features may represent procedure-related changes, but the differential diagnosis also includes medication-related mucosal injury, early ischemia, trauma/prolapse, or diverticular disease-associated colitis. . 01 Electronically signed: . Lora Wolfe MD, Pathologist NPI- [id number] . 01 Gross description: . A. Received in formalin, labeled with the patient's name, , and designated duodenum, and consists of three mora soft tissue fragments ranging from 0.2 cm to 0.4 cm in greatest dimension. Submitted entirely in cassette A1. B. Received in formalin, labeled with the patient's name, , and designated antrum, and consists of two mora soft tissue fragments measuring 0.2 cm each in greatest dimension. Submitted entirely in cassette B1. C. Received in formalin, labeled with the patient's name, , and designated GEJ, and consists of two mora soft tissue fragments ranging from 0.1 cm to 0.3 cm in greatest dimension. Submitted entirely in cassette C1. D. Received in formalin, labeled with the patient's name, , and designated mid esophagus, and consists of a single mora soft tissue fragment measuring 0.2 cm in greatest dimension. Submitted entirely in cassette D1. E. Received in formalin, labeled with the patient's name, , and designated transverse erosions, and consists of two mora soft tissue fragments measuring 0.2-0.3 cm in greatest dimension. Submitted entirely in cassette E1. F. Received in formalin, labeled with the patient's name, , and designated sigmoid, and consists of two mora soft tissue fragments ranging from 0.1 cm to 0.2 cm in greatest dimension. Submitted entirely in cassette F1. ([id number]) /[facility] 01/25/2023 [facility]6 Local . 01 Microscopic: . B. An immunohistochemical stain was performed to evaluate for Helicobacter organisms and is negative. The control stain showed appropriate reactivity. . C. An AB/PAS stain is performed to evaluate for intestinal metaplasia and is negative. The control stain showed appropriate reactivity. . * This test was developed and its performance characteristics determined by [facility]. It has not been cleared or approved by the U.S. Food and Drug Administration. The FDA has determined that such clearance or approval is not necessary. This test is used for clinical purposes. It should not be regarded as investigational or for research. . 01 Pathologist provided ICD-10: R10.9, R19.8 . 01 CPT . 221997, 047748, 474278, 166069, 547338, 267356, L44723, 519258 Specimen Comment: A courtesy copy of this report has been sent to [phone] Performed at: 01 [facility] [address] [place] [address], [place], [place] [id number] MD Joaquín Roa MD Phone: [phone]
[2023-01-22 08:58] VITALS: BMI 25.6
[2023-01-22] MEDS: LACTATED RINGERS 1,000 ML 100 ML IV (09:05)
[2023-01-22 09:06] VITALS: BP 126/84; PULSE 83; RESP 16; TEMP 36.4; O2SAT 100
--- NOTE | 2023-01-22 09:30 | P.HP_ITS ---
History of Present Illness History of Present Illness Date Patient Seen: 01/22/23 Time Patient Seen: 09:30 Chief complaint: SDC Narrative: I reviewed my recent office note. No significant changes. She had another episode of fairly significant diarrhea but without bleeding this time. [facility] Medical History ADHD (attention deficit hyperactivity disorder) Arthritis Chronic neck pain Depression Endometriosis Family history of breast cancer gene mutation in first degree relative Fatigue History of Lyme disease Hyperlipidemia Insomnia Keloid scar Pancreatitis, acute Surgical History H/O cervical spine surgery H/O: hysterectomy Family History Father Diabetes mellitus Stroke Osteoarthritis Grandmother Osteoarthritis Heart disease Uterine cancer Sister Depression Fibromyalgia Cancer Social History household members: spouse Smoking Status: Never smoker alcohol intake: never Meds Home Medications and Allergies Home Medications Medication Instructions Recorded Confirmed Type atorvastatin 20 mg tablet 20 mg PO BEDTIME #90 tabs 06/25/22 01/22/23 Rx etodolac 400 mg tablet 400 mg PO BID #180 tabs 06/25/22 01/22/23 Rx hydrocodone 5 mg-acetaminophen 325 1 tab PO BID PRN pain #30 tabs 07/23/22 01/22/23 Rx mg tablet levonorgestrel 0.15 mg-ethinyl 1 tab PO DAILY #91 ea 09/20/22 01/22/23 Rx estradiol 30 mcg tablets,3 mos pack(91) citalopram 20 mg tablet 40 mg PO DAILY #180 tabs 11/06/22 01/22/23 Rx methocarbamol 750 mg tablet 750 mg PO BEDTIME #30 tabs 11/06/22 01/22/23 Rx ondansetron HCl 8 mg tablet 8 mg PO Q12H PRN nausea and 11/06/22 01/22/23 Rx vomiting #20 tabs lisdexamfetamine 50 mg capsule 50 mg PO DAILY #30 caps 01/16/23 01/22/23 Rx (Vyvanse) Allergies Allergy/AdvReac Type Severity Reaction Status Date / Time Sulfa (Sulfonamide Allergy Severe lips Verified 01/22/23 08:56 Antibiotics) swelling Review of Systems Review of Systems ROS: Yes All systems reviewed with the patient and are negative except as otherwise documented Exam Vital Signs (past 8 hours): - 01/22/23 09:06 Temperature 97.5 F L Pulse Rate 83 Respiratory Rate 16 Blood Pressure 126/84 Pulse Oximetry 100 Oxygen Delivery Method Room Air Oxygen Delivery Method Room Air Const General: cooperative HENMT Head: normal to inspection Eyes General: appearance normal, both eyes and all related structures Neck Neck: normal visual inspection Chest Chest: normal inspection of the chest Resp Effort & Inspection: normal respiratory effort Cardio Rate: regular rate GI Inspection: normal to inspection Skin General: no rashes or lesions noted Neuro General: patient alert and patient awake Extrem General: normal to inspection and no pedal edema Psych Appearance: grossly normal Assessment & Plan Assessment & Plan narrative: 47-year-old female with abdominal pain altered bowel habit and diarrhea rectal bleeding. EGD and colonoscopy is pursued today.
--- NOTE | 2023-01-22 09:31 | PM.PREOP ---
Pre-operative Note Interval Note History & Physical reviewed/Exam performed by Physician: Yes Changes to H&P: No ASA Class (for procedural sedation): II
--- NOTE | 2023-01-22 10:33 | PM.OP.EC ---
Operative Date/Time/Diagnoses Date of procedure: 01/22/23 Time of procedure: 10:33 Pre-op diagnosis: Abdominal pain, altered bowel habit, diarrhea, rectal bleeding. Post-op diagnosis: same Procedure & Clinicians Study performed: EGD with biopsies and colonoscopy with biopsies Same procedure as scheduled: Yes Indications: Abdominal pain, altered bowel habit, diarrhea, rectal bleeding. Surgeon: Sp Granda Procedure Notes SCOAP/Timeout: Done Procedure in detail: After the risks and benefits were explained, written and verbal informed consent was obtained. The patient was brought into the procedure room and placed into the left lateral decubitus position. Please see anesthesia note for sedation details. The scope was introduced into the mouth through the bite block and advanced under direct visualization to the 2nd portion of the duodenum. The scope was slowly withdrawn carefully examining the mucosa for any defects or lesions. Retroflexed views were accomplished in the stomach. The stomach was decompressed, the scope was then removed from the patient who tolerated the procedure well. The patient was then turned around. A digital rectal examination was accomplished. The scope was introduced into the rectum and advanced to the cecum as identified by the appendiceal orifice and ileocecal valve. The scope was advanced into the terminal ileum. The scope was then slowly withdrawn to carefully examine mucosa for any defects or lesions. Multiple direct views were made through the dentate line for exclusion of pathology. Colon was decompressed. The scope was removed from the patient who tolerated the procedure well. Pediatric colonoscope Bowel prep adequate Scope withdrawal time: 11 minutes Sedation minutes: 37 Impression: 1. Duodenum: This was visually normal with the exception of an extremely tortuous sharp angle to make corner from the bulb into the 2nd portion. Random D2 biopsies were taken for exclusion of sprue. 2. Stomach: Patient had a few scattered erosive features in the antrum. Otherwise no significant pathology in the stomach. Antral biopsies were taken for exclusion of H pylori or other pathology. 3. Esophagus: The squamocolumnar junction correlated with the top of the gastric folds. GEJ was at about 34 cm from the incisors. The patient did have evidence of subtle LA grade a erosive esophagitis. Biopsies from the GE junction were acquired for histopathology. There was a very subtle sliding hiatal hernia. In the midesophagus there were tightly group circumferential folds all throughout suggesting the possibility of underlying eosinophilic infiltration. Random midesophageal biopsies were thus acquired 4. Terminal ileum: This was visually normal. 5. Colon: Patient had grade 2-3 internal nonbleeding nonthrombosed hemorrhoids. There was no evidence of proctitis. There were some scattered erosions in the sigmoid descending and transverse colon. Biopsies were taken from the subtly eroded mucosa in the transverse and then a separate set of biopsies was taken from the sigmoid colon but I attempted to involve the underlying normal mucosa in the specimens. Endoscopic diagnosis 1. Subtle sliding hiatal hernia 2. LA grade A erosive esophagitis 3. Tightly grouped midesophageal circumferential folds-biopsied 4. Erosive gastropathy 5. Tortuous duodenum 6. Subtle erosive colopathy 7. Hemorrhoids Post-procedure Plan for aftercare: 1. Await histopathology. 2. Initiate omeprazole 20 mg once daily [id number] 3. Avoid NSAIDs 4. Follow up GI clinic Disposition: PACU
[2023-01-22 10:35] VITALS: BP 90/56; PULSE 64; RESP 17; TEMP 36.1; O2SAT 100
[2023-01-22 10:39] VITALS: BP 89/56; PULSE 67; RESP 16; O2SAT 96
[2023-01-22 10:44] VITALS: BP 90/58; PULSE 71; RESP 18; O2SAT 98
[2023-01-22 10:49] VITALS: BP 104/64; PULSE 71; RESP 14; TEMP 36.1; O2SAT 100
[2023-01-22] MEDS: ONDANSETRON 4 MG/2 ML INJ IV (10:57)
--- NOTE | 2023-01-22 10:58 | SUR.PHASEII ---
Patient reported mild nausea. Ajay Cloud CRNA, notified and Diana ordered, given.
== END 2023-01-22 11:21 | disposition home or self-care (01) ==
PROVIDERS: PCP Family Medicine; Referring Provider Internal Medicine Gastroenterology; Visit Provider Internal Medicine Gastroenterology
PROC: 0DJ08ZZ Inspection of Upper Intestinal Tract, Via Natural or Artificial Opening Endoscopic (ICD-10-PCS; CPT 43235; principal; 2023-01-22 10:00)
PROC: 0DJD8ZZ Inspection of Lower Intestinal Tract, Via Natural or Artificial Opening Endoscopic (ICD-10-PCS; CPT 45378; 2023-01-22 10:00)
DX: K29.50 Unspecified chronic gastritis without bleeding (principal); R19.4 Change in bowel habit; R19.7 Diarrhea, unspecified; K62.5 Hemorrhage of anus and rectum; K22.10 Ulcer of esophagus without bleeding; K44.9 Diaphragmatic hernia without obstruction or gangrene; K64.2 Third degree hemorrhoids; K52.89 Other specified noninfective gastroenteritis and colitis
CPT/HCPCS: 43239; 45380; J2405; J2704

== ENCOUNTER → 2023-04-22 08:59 | Outpatient (CLI) | payer OTHER, SELFPAY ==
[2023-04-22 09:58] LABS: Add Manual Diff / Slide Review NO; Basophils Absolute Auto 0 /uL (0-100); Basophils Percent Auto 0.4 % (0-2); Eosinophils Absolute Auto 0 /uL (0-450); Eosinophils Percent Auto 0.5 % (2-4); Hematocrit 42.3 % (36-46); Hemoglobin 14.1 g/dL (12.0-16.0); Lymphocytes Absolute Auto 1300 /uL (1100-4500); Lymphocytes Percent Auto 15.7 % (25-40); Mean Corpuscular HGB Conc 33.4 % (30-36); Mean Corpuscular Hemoglobin 29.3 PG (26-34); Mean Corpuscular Volume 87.6 fL (80-100); Monocytes Absolute Auto 400 /uL (0-900); Monocytes Percent Auto 5.2 % (3-14); Neutrophils Absolute Auto 6300 /uL (1500-7000); Neutrophils Percent Auto 78.2 % (50-75); Platelet Count 381 X10^3/uL (150-400); Red Blood Cell Count 4.83 X10^6/uL (4.0-5.2); Red Cell Distribution Width 13.2 % (11.6-14.8)
[2023-04-22 10:29] LABS: HEMOLYSIS < 15 (0-50); Iron 98 ug/dL (37-170)
[2023-04-22 10:40] LABS: Percent Iron Saturation 24 % (15-50); Total Iron Binding Capacity 414 ug/dL (265-497); Transferrin 311 mg/dL (206-381)
[2023-04-22 10:43] LABS: Alanine Aminotransferase 17 IU/L (<35); Albumin 4.3 g/dL (3.5-5.0); Albumin Globulin Ratio 1.6 (1.0-2.8); Alkaline Phosphatase 64 U/L (38-126); Amylase 62 U/L (30-110); Aspartate Aminotransferase 25 IU/L (14-36); BUN Creatinine Ratio 18.3 (6-22); Bilirubin Total 0.4 mg/dL (0.2-1.3); Blood Urea Nitrogen 13 mg/dL (7-17); Calcium 9.5 mg/dL (8.4-10.2); Carbon Dioxide 25 mmol/L (22-32); Chloride 101 mmol/L (98-107); Estimated Glomerular Filt Rate > 60 mL/min (>60); Globulin 2.7 g/dL (1.7-4.1); Glucose 137 mg/dL (70-100); HEMOLYSIS < 15 (0-50); Lipase 110 U/L (23-300); Potassium 4.1 mmol/L (3.4-5.1); Sodium 135 mmol/L (137-145)
[2023-04-22 11:01] LABS: TSH w/ Reflex to FT4 1.53 uIU/mL (0.47-4.68)
[2023-04-22 11:32] LABS: Vitamin B12 > 1000 pg/mL (239-931)
== END ==
PROVIDERS: PCP Family Medicine; Referring Provider Family Medicine; Visit Provider Family Medicine
DX: K85.90 Acute pancreatitis without necrosis or infection, unspecified (principal); D64.9 Anemia, unspecified; E53.8 Deficiency of other specified B group vitamins
CPT/HCPCS: 36415; 80053; 82150; 82607; 83540; 83550; 83690; 84443; 85025

== ENCOUNTER → 2023-08-02 08:23 | Outpatient (CLI) | payer OTHER, SELFPAY ==
--- NOTE | 2023-08-02 | DI.MG.S_ITS ---
BILATERAL DIGITAL SCREENING MAMMOGRAM 3D/2D WITH CAD: 08/02/2023 CLINICAL: Routine screening. Family history of breast cancer. Comparison is made to exams dated: 07/09/2022 mammogram, 07/07/2021 mammogram - [facility], and 06/24/2019 mammogram - outside facility. Both breasts are heterogeneously dense, which may obscure small masses (category c / 51-75% glandular tissue). Current study was also evaluated with a Computer Aided Detection (CAD) system. There are benign calcifications in the left breast. No significant masses, calcifications, or other findings are seen in either breast. There has been no significant interval change. IMPRESSION: BENIGN There is no mammographic evidence of malignancy. A 1 year screening mammogram is recommended. Based on Tyrer-Cuzick model (a risk assessment model), the patient's lifetime risk is 22.2% and her 10 year risk is 4.5%. If a patient has an elevated risk, a more comprehensive evaluation should be considered and/or a referral to a genetic counselor. The [employer], [employer], and NCCN Guidelines advise the consideration of Breast MRI as an adjunct to screening mammography in patients whose Lifetime risk to develop breast cancer is 20% or higher. This exam was interpreted at Station ID: [id number]. NOTE: For mammograms, a report in lay terms will be sent to the patient. Approximately 15% of breast malignancies will not be visualized mammographically. In the management of a palpable breast mass, a negative mammogram must not discourage biopsy of a clinically suspicious lesion. Electronically Signed By: Ana ashley/amrit:08/04/2023 09:44:19 letter sent: Normal Exam ACR BI-RADS Category 2: Benign Finding(s) 3342F
== END ==
LOC: MAMMO 08:24
PROVIDERS: PCP Family Medicine; Referring Provider Family Medicine; Visit Provider Family Medicine
DX: Z12.31 Encounter for screening mammogram for malignant neoplasm of breast (principal); Z80.3 Family history of malignant neoplasm of breast; R92.333 Mammographic heterogeneous density, bilateral breasts
CPT/HCPCS: 77063; 77067

== ENCOUNTER → 2023-08-17 14:12 | Outpatient (CLI) | payer OTHER, SELFPAY ==
--- NOTE | 2023-08-17 14:14 | DI.RAD.S_ITS ---
PROCEDURE: XR CALCANEOUS LT MIN 2V INDICATIONS: tender lump left heel TECHNIQUE: Two views of the calcaneus were acquired. COMPARISON: None. FINDINGS: Bones: No fractures or dislocations. No suspicious bony lesions. Incidental note is made of an accessory ossicle, an os trigonum. Soft tissues: No suspicious calcifications. Achilles tendon appears normal. IMPRESSION: No acute bony abnormality. If it would be helpful for clinical management decision making, please consider a dedicated, scheduled ankle MRI for further evaluation (assuming that there is no contraindication). Dictated by: Duke Winters M.D. on 08/17/2023 at 13:31 Approved by: Duke Winters M.D. on 08/17/2023 at 13:32
== END ==
LOC: RAD 14:13
PROVIDERS: PCP Family Medicine; Referring Provider Physician Assistant; Visit Provider Physician Assistant
DX: M79.672 Pain in left foot (principal)
CPT/HCPCS: 73650

== ENCOUNTER → 2023-10-28 10:35 | Outpatient (CLI) | payer OTHER, SELFPAY ==
--- NOTE | 2023-10-28 | DI.MRI.S_ITS ---
PROCEDURE: MR FOOT RT WO CON INDICATIONS: FREIBERG'S INFARCTION RIGHT TECHNIQUE: Multiphasic, multisequence MRI of the forefoot was performed, without intravenous contrast administration. COMPARISON: [facility], CR, XR FOOT 3 VIEWS WEIGHT BEARING RIGHT, 10/13/2023, 12:14. FINDINGS: Image quality: Excellent. Bones and joints: There is articular surface collapse of the 2nd metatarsal head, with associated marrow edema, likely secondary to avascular necrosis in the absence of trauma. There is additional diffuse marrow edema of the 2nd proximal phalanx, without fracture line, nonspecific and may be reactive versus stress changes. There is capsular hypertrophy about the 2nd metatarsophalangeal joint. Moderate amount of effusion within the 1st metatarsophalangeal joint. Small effusion within the 1st interphalangeal joint. Soft tissues: The extensor common flexor tendon are remarkable. The muscles of the mid and forefoot is unremarkable. The Lisfranc ligament is intact. No intermetatarsal bursitis. IMPRESSION: 1. Articular surface collapse of the 2nd metatarsal head, likely secondary to avascular necrosis/Freiberg's infarction in the absence of trauma. 2. Diffuse marrow edema of the 2nd proximal phalanx, favoring reactive versus stress changes. Dictated by: Kristine James M.D. on 10/28/2023 at 20:00 Approved by: Kristine James M.D. on 10/28/2023 at 20:07
== END ==
PROVIDERS: PCP Family Medicine; Referring Provider Orthopaedic Surgery Foot and Ankle Surgery; Visit Provider Orthopaedic Surgery Foot and Ankle Surgery
DX: M92.71 Juvenile osteochondrosis of metatarsus, right foot (principal)
CPT/HCPCS: 73718

== ENCOUNTER → 2023-12-25 08:58 | Outpatient (CLI) | payer OTHER, SELFPAY ==
[2023-12-25 09:58] LABS: Add Manual Diff / Slide Review NO; Basophils Absolute Auto 0 /uL (0-100); Basophils Percent Auto 0.4 % (0-2); Eosinophils Absolute Auto 100 /uL (0-450); Eosinophils Percent Auto 0.9 % (2-4); Hematocrit 42.3 % (36-46); Hemoglobin 14.5 g/dL (12.0-16.0); Lymphocytes Absolute Auto 1700 /uL (1100-4500); Lymphocytes Percent Auto 18.1 % (25-40); Mean Corpuscular HGB Conc 34.2 % (30-36); Mean Corpuscular Hemoglobin 30.1 PG (26-34); Mean Corpuscular Volume 88.1 fL (80-100); Monocytes Absolute Auto 500 /uL (0-900); Monocytes Percent Auto 5.7 % (3-14); Neutrophils Absolute Auto 6900 /uL (1500-7000); Neutrophils Percent Auto 74.9 % (50-75); Platelet Count 377 X10^3/uL (150-400); Red Cell Distribution Width 13.3 % (11.6-14.8); White Blood Cell Count 9.2 X10^3/uL (4.5-11.0)
[2023-12-25 10:21] LABS: HEMOLYSIS < 15 (0-50); Iron 135 ug/dL (37-170)
[2023-12-25 10:33] LABS: Percent Iron Saturation 38 % (15-50); Total Iron Binding Capacity 358 ug/dL (265-497); Transferrin 283 mg/dL (206-381)
[2023-12-25 10:58] LABS: Ferritin 24 ng/mL (6-137)
== END ==
PROVIDERS: PCP Family Medicine; Referring Provider Internal Medicine Gastroenterology; Visit Provider Internal Medicine Gastroenterology
DX: K92.1 Melena (principal)
CPT/HCPCS: 36415; 82728; 83540; 83550; 85025

== ENCOUNTER → 2024-01-07 13:45 | Outpatient (CLI) | payer OTHER, SELFPAY | PROVIDERS: PCP Family Medicine; Visit Provider Family Medicine | DX: N39.0 Urinary tract infection, site not specified (principal); R31.9 Hematuria, unspecified | CPT/HCPCS: 87086 ==

== ENCOUNTER → 2024-01-12 09:22 | Outpatient (CLI) | payer OTHER, SELFPAY | PROVIDERS: PCP Family Medicine; Visit Provider Family Medicine | DX: J02.9 Acute pharyngitis, unspecified (principal) | CPT/HCPCS: 87070 ==

== ENCOUNTER → 2024-01-26 16:46 | Outpatient (CLI) | payer OTHER, SELFPAY ==
[2024-01-26 17:57] LABS: Bilirubin Urine UA NEGATIVE (NEGATIVE); Color Urine UA YELLOW; Glucose Urine UA NEGATIVE (Negative); Ketones Urine UA TRACE (NEGATIVE); Leukocyte Esterase Urine UA NEGATIVE (NEGATIVE); Nitrite Urine UA NEGATIVE (Negative); Occult Blood Urine UA NEGATIVE (Negative); Protein Urine UA TRACE (Negative); Specific Gravity Urine UA >=1.030 (1.000-1.035)
[2024-01-26 17:59] LABS: Appearance Urine UA SL CLOUDY; pH Urine UA 5.5 (4.5-8.0)
[2024-01-26 18:35] LABS: Culture Indicated Urine Cult Not Indicated; RBC Urine None Seen (0-5/HPF); Urine Volume 10mL (spun)
[2024-01-26 18:38] LABS: Bacteria Urine Moderate (10-30)
[2024-01-26 18:39] LABS: Squamous Epithelial Cell Urine 1-5 /HPF (0-5/HPF); WBC Urine 1-5/HPF (0-5/HPF)
== END ==
PROVIDERS: PCP Family Medicine; Referring Provider Family Medicine; Visit Provider Family Medicine
DX: R31.9 Hematuria, unspecified (principal)
CPT/HCPCS: 81001

== ENCOUNTER → 2024-02-20 10:36 | Outpatient (CLI) | payer OTHER, SELFPAY ==
[2024-02-20 13:19] LABS: Appearance Urine UA CLEAR; Bilirubin Urine UA NEGATIVE (NEGATIVE); Color Urine UA YELLOW; Glucose Urine UA NEGATIVE (Negative); Ketones Urine UA NEGATIVE (NEGATIVE); Leukocyte Esterase Urine UA 1+ (NEGATIVE); Nitrite Urine UA NEGATIVE (Negative); Occult Blood Urine UA TRACE-INTACT (Negative); Protein Urine UA NEGATIVE (Negative); Specific Gravity Urine UA <=1.005 (1.000-1.035); Urobilinogen Urine UA 0.2 E.U./dL (0.2)
[2024-02-20 13:20] LABS: pH Urine UA 6.5 (4.5-8.0)
[2024-02-20 15:00] LABS: Bacteria Urine Moderate (10-30); Culture Indicated Urine Specimen Cultured; RBC Urine None Seen (0-5/HPF); Squamous Epithelial Cell Urine 1-5 /HPF (0-5/HPF); Urine Volume 10mL (spun); WBC Urine 1-5/HPF (0-5/HPF)
== END ==
PROVIDERS: PCP Family Medicine; Referring Provider Family Medicine; Visit Provider Family Medicine
DX: R39.15 Urgency of urination (principal)
CPT/HCPCS: 81001; 87086

== ENCOUNTER → 2024-03-12 16:37 | Outpatient (CLI) | payer OTHER, SELFPAY ==
--- NOTE | 2024-03-12 16:38 | DI.MRI.S_ITS ---
BREAST MRI OF BOTH BREASTS: 03/13/2024 CLINICAL: High risk screening. PROCEDURE: MR BREAST BI WO/W CON INDICATIONS: eval fam hx breast cancer TECHNIQUE: The patient was placed prone in a dedicated breast imaging coil. Precontrast axial STIR and 3D FLASH without fat saturation sequences were obtained. Both before and after bolus injection of contrast, sequential 1-minute axial 3D FLASH with fat saturation sequences for 3 time points, with subtraction images and maximum intensity projections (MIP's) generated. Delayed sagittal FLASH images with fat saturation were also obtained. CONTRAST: 20 cc ProHance IV contrast. Computer-aided detection, including computer algorithm analysis of MRI image data for lesion detection and characterization, pharmacokinetic analysis, with further physician review for interpretation, was performed. COMPARISON: [facility], , SCREENING MAMMO BI, 08/02/2023, 8:47. , SCREENING MAMMO BI, 07/09/2022, 11:05. FINDINGS: Image quality: Excellent. There is moderate background parenchymal enhancement. Right breast: No mass or suspicious enhancement. Multiple small T2 hyperintense cysts. Left breast: No mass or suspicious enhancement. Multiple small T2 hyperintense cysts. Miscellaneous: No enlarged lymph nodes. IMPRESSION: BENIGN Moderate background parenchymal enhancement. This somewhat limits exam sensitivity. No mass or suspicious enhancement. No enlarged lymph nodes. BIRADS 2. A 1 year screening mammogram is recommended. 08/02/2024 Recommend continued screening breast MRI. COMMENT: The imaging literature indicates that a negative contrast breast MRI examination has a high sensitivity and a moderate specificity for detecting and excluding invasive carcinomas to a detection threshold of 3-5 mm; nonetheless, appropriate clinical and mammographic follow-up are recommended. MRI is not sensitive for detecting DCIS (ductal carcinoma in situ) and may not detect large invasive neoplasms that show only minimal enhancement such as mucinous carcinoma. If there are suspicious calcifications or clinically worrisome palpable masses, then biopsy should still be considered. Invasive neoplasms can be hidden by co-existent and benign enhancement caused by mastitis, hormone therapy effects, radiation therapy, , and recent biopsy or surgery. False positive examinations can occur in a number of circumstances, including breasts that have recently been subject to invasive procedures and those that contain atypical ductal hyperplasia, hormonally stimulated glandular tissue, fat necrosis, or radial scars. Dictated by: Ron Solis M.D. on 03/16/2024 at 15:47 This exam was interpreted at Station ID: [id number]. Electronically Signed By: Ron Solis M.D. slc/:03/16/2024 15:50:35 letter sent: Normal Exam ACR BI-RADS Category 2: Benign Finding(s) 3342F
== END ==
PROVIDERS: PCP Family Medicine; Referring Provider Family Medicine; Visit Provider Family Medicine
DX: Z12.39 Encounter for other screening for malignant neoplasm of breast (principal); N60.01 Solitary cyst of right breast; N60.02 Solitary cyst of left breast; Z84.81 Family history of carrier of genetic disease
CPT/HCPCS: 77049; A9579

== ENCOUNTER → 2024-05-27 13:25 | Outpatient (CLI) | payer OTHER, SELFPAY ==
--- NOTE | 2024-05-27 13:26 | DI.US.S_ITS ---
PROCEDURE: US PELVIC COMPLETE INDICATIONS: ENDOMETRIOSIS/FIBROIDS. BICORNUATE UT W/LT HORN SX REMOVED TECHNIQUE: Real-time scanning was performed of the pelvic organs, with image documentation. Additional endovaginal scanning was necessary due to incomplete visualization of the adnexal and endometrial structures by transabdominal scanning. This is a technically limited exam. COMPARISON: [facility], CT, CT ABDOMEN PELVIS W CON, 10/10/2022, 13:07. FINDINGS: Uterus: Uterus is anteverted and normal in size at 7.0 x 3.9 x 3.4 cm. The myometrium is homogeneous. The endometrium measures 4.8 mm combined thickness. Lower ureter in segment focus of heterogeneous echogenicity measuring 1.1 x 1.2 x 1.0 cm. At the lateral wall of the cervix there is a solid/cystic component without increased vascularity measuring 2.5 x 1.7 x 1.7 cm. Ovaries: Not visualized. Other: No pathologic free abdominal or pelvic fluid. IMPRESSION: Poorly characterized in visualized lower uterine segment complex mass. This could represent a lower uterine segment degenerating fibroid. However, it is poorly visualized. If concern persists, short interval imaging ultrasound follow-up or MRI with [employer] protocol may be obtained. We strive to produce accurate, complete, and clear reports of imaging services. To assist us in improving patient care, this report was composed using standard report templates and voice recognition software. Therefore, it may contain abnormal punctuation, insertions and/or omissions. Occasional wrong-word or sound-alike substitutions may occur. Though we review the report and make efforts to correct it, we do recommend that the report be read carefully in proper context to recognize any text inaccuracies. Dictated by: Kayla Anderson M.D. on 05/27/2024 at 20:53 Approved by: Kayla Anderson M.D. on 05/27/2024 at 20:55
== END ==
PROVIDERS: PCP Family Medicine; Referring Provider Obstetrics & Gynecology; Visit Provider Obstetrics & Gynecology
DX: R10.2 Pelvic and perineal pain (principal); G89.29 Other chronic pain; N80.9 Endometriosis, unspecified; D25.9 Leiomyoma of uterus, unspecified
CPT/HCPCS: 76830; 76856

== ENCOUNTER 2024-07-20 20:02 | Emergency (ER) | payer OTHER, SELFPAY ==
[2024-07-20 20:09] VITALS: BP 185/79; PULSE 90; RESP 20; TEMP 36.9; O2SAT 98; BMI 28.3
[2024-07-20] MEDS: ONDANSETRON 4 MG/2 ML INJ IV (20:27)
[2024-07-20 20:29] LABS: Add Manual Diff / Slide Review NO; Basophils Absolute Auto 100 /uL (0-100); Basophils Percent Auto 0.5 % (0-2); Eosinophils Absolute Auto 300 /uL (0-450); Eosinophils Percent Auto 1.9 % (2-4); Hematocrit 44.7 % (36-46); Hemoglobin 14.9 g/dL (12.0-16.0); Lymphocytes Absolute Auto 2800 /uL (1100-4500); Lymphocytes Percent Auto 20.9 % (25-40); Mean Corpuscular HGB Conc 33.2 % (30-36); Mean Corpuscular Hemoglobin 29.2 PG (26-34); Mean Corpuscular Volume 87.8 fL (80-100); Monocytes Absolute Auto 1000 /uL (0-900); Monocytes Percent Auto 7.3 % (3-14); Neutrophils Absolute Auto 9400 /uL (1500-7000); Neutrophils Percent Auto 69.4 % (50-75); Platelet Count 472 X10^3/uL (150-400); Red Cell Distribution Width 13.5 % (11.6-14.8); White Blood Cell Count 13.5 X10^3/uL (4.5-11.0)
--- NOTE | 2024-07-20 20:29 | DI.RAD.S_ITS ---
PROCEDURE: XR ACUTE ABDOMEN SERIES INDICATIONS: c/o constipation with abd pain TECHNIQUE: One view chest and two views of the abdomen were acquired. COMPARISON: None. FINDINGS: Surgical changes and devices: None. Chest: Lungs are clear. Heart size is normal. No pleural effusions. No pneumoperitoneum. Abdomen: Bowel gas pattern is normal. No suspicious calcifications. Visualized solid organ contours appear normal. Mild fecal loading. Bones: No suspicious bony lesions. IMPRESSION: No acute abnormality. Mild fecal loading. Approved by: Shanda Donnelly M.D.,Ph.D. on 07/20/2024 at 22:02
[2024-07-20 20:43] LABS: Alanine Aminotransferase 27 IU/L (<35); Albumin 4.2 g/dL (3.5-5.0); Albumin Globulin Ratio 1.3 (1.0-2.8); Alkaline Phosphatase 69 U/L (38-126); Aspartate Aminotransferase 32 IU/L (14-36); BUN Creatinine Ratio 14.4 (6-22); Bilirubin Total 0.5 mg/dL (0.2-1.3); Blood Urea Nitrogen 14 mg/dL (7-17); Calcium 9.7 mg/dL (8.4-10.2); Carbon Dioxide 29 mmol/L (22-32); Chloride 103 mmol/L (98-107); Estimated Glomerular Filt Rate > 60 mL/min (>60); Globulin 3.3 g/dL (1.7-4.1); Glucose 100 mg/dL (70-100); HEMOLYSIS 18 (0-50); Lipase 152 U/L (23-300); Potassium 4.3 mmol/L (3.4-5.1); Sodium 136 mmol/L (137-145); Total Protein 7.5 g/dL (6.3-8.2)
[2024-07-20 22:09] LABS: Bacteria Urine Few (2-10); Culture Indicated Urine Cult Not Indicated; Mucus Urine 1+ (Negative); RBC Urine 30-100/HPF (0-5/HPF); Squamous Epithelial Cell Urine 1-5 /HPF (0-5/HPF); Urine Volume 10mL (spun); WBC Urine 1-5/HPF (0-5/HPF)
[2024-07-21] VITALS (10 sets, daily range): BP systolic 107–131; BP diastolic 62–82; PULSE 70–88; RESP 16–20; O2SAT 96–99
--- NOTE | 2024-07-21 00:50 | PC.NURSE ---
Pt calls back and c/o nausea and pain worsening. Provider Artis made aware. New verbal orders given. This RN checks on patient and retakes vitals.
[2024-07-21] MEDS: KETOROLAC 30 MG/ML VIAL 15 MG IV (00:58)
--- NOTE | 2024-07-21 01:41 | ED_ITS ---
HPI - Abdominal Pain General Chief Complaint: Abdominal Pain Stated Complaint: thinks ovarian cyst ruptured Time Seen by Provider: 07/21/24 01:40 Source: patient, RN notes reviewed and old records reviewed Mode of arrival: Ambulatory Limitations: no limitations History of Present Illness HPI narrative: 49-year-old female history of dyslipidemia, known uterine fibroids, presents with complaint of fairly sudden onset at about 1:00 a.m. yesterday of left flank pain radiating towards the front. Patient states has been persistent. No fevers reported. She has had nausea and some vomiting. She has been constipated but took some stool softeners and was able to have a bowel movement. She also used a suppository. Denies any dysuria urgency or frequency. Has not had any vaginal bleeding or discharge. Does have a history of ruptured ovarian cyst that was hemorrhagic and actually caused bleeding and had to go to the OR remotely. She also has known uterine fibroids and is scheduled for surgery on 08/12 2 remove the rest of her uterus she has had a partial hysterectomy remotely. Reports an allergy to sulfa. No tobacco, no regular alcohol, no recreational drugs. 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 Patient presents this evening stating quite uncomfortable has taken [place] in the past but is currently out of it she did take some of her methocarbamol from home but has been persistent. She does normally take citalopram a statin meloxicam seasonale as her daily medications. Related Data Home Medications Medication Instructions Recorded Confirmed mecobalamin (vitamin B12) PO 04/15/23 07/01/24 Previous Rx's Medication Instructions Recorded levonorgestrel 0.15 mg-ethinyl 1 tab PO DAILY #91 ea 11/14/23 estradiol 30 mcg tablets,3 mos pack(91) atorvastatin 20 mg tablet 20 mg PO ONCE PM #90 tabs 01/26/24 hydrocodone 5 mg-acetaminophen 325 1 tab PO BID PRN pain #30 tabs 05/12/24 mg tablet methocarbamol 750 mg tablet 750 mg PO ONCE PM #30 tabs 05/12/24 citalopram 20 mg tablet 40 mg (2 x 20 mg) PO DAILY #180 05/17/24 tabs trazodone 100 mg tablet 100 mg PO BEDTIME PRN sleep #90 06/03/24 tabs meloxicam 15 mg tablet 15 mg PO DAILY #30 tabs 06/10/24 cephalexin 500 mg capsule 500 mg PO TID #21 caps 07/02/24 lisdexamfetamine 40 mg capsule 40 mg PO DAILY #30 caps 07/13/24 cefpodoxime 200 mg tablet 200 mg PO BID #14 tabs 07/21/24 hydrocodone 5 mg-acetaminophen 325 1 tab PO Q6H PRN pain #10 tabs 07/21/24 mg tablet Allergies Allergy/AdvReac Type Severity Reaction Status Date / Time Sulfa (Sulfonamide Allergy Severe lips Verified 07/20/24 20:09 Antibiotics) swelling Review of Systems Review of Systems ROS Unobtainable: All systems reviewed & are unremarkable except as noted in HPI and below Patient History Medical History Perimenopausal symptoms Painless hematuria Achilles tendinitis of left lower extremity Gastritis Pancreatitis, acute Keloid scar Hyperlipidemia Depression Insomnia History of Lyme disease Arthritis Fatigue Endometriosis Family history of breast cancer gene mutation in first degree relative Chronic neck pain ADHD (attention deficit hyperactivity disorder) Surgical History H/O: hysterectomy H/O cervical spine surgery Family History Father Diabetes mellitus Stroke Osteoarthritis Grandmother Osteoarthritis Heart disease Uterine cancer Sister Depression Fibromyalgia Cancer Social History household members: spouse Smoking Status: Never smoker alcohol intake: never Smoking Status: Never smoker alcohol intake frequency: holidays/special occasions only Exam Narrative Exam Narrative: GENERAL: Alert and oriented x three, female in moderate distress. HEENT: Head normocephalic, atraumatic, EOMI, pupils reactive, face symmetric, moist mucous membranes NECK: Supple, full range of motion CARDIOVASCULAR: Regular rate and rhythm without murmurs, rubs or gallops. RESPIRATORY: Breath sounds equal bilaterally, no wheezes rales or rhonchi. ABDOMEN: Soft, left lower quadrant tenderness. Normoactive bowel sounds all 4 quadrants. No guarding or rebound, rigidity, no mass : Left CVA tenderness EXTREMITIES: Normal range of motion, no clubbing or edema. Neurovascularly intact NEUROLOGICAL: Cranial nerves II through XII grossly intact. Moving all extremities SKIN: Warm, dry, no petechiae, no rashes or lesions. Initial Vital Signs Initial Vital Signs: Vital Signs Temperature 98.4 F 07/20/24 20:09 Pulse Rate 90 07/20/24 20:09 Respiratory Rate 20 07/20/24 20:09 Blood Pressure 185/79 H 07/20/24 20:09 Pulse Oximetry 98 07/20/24 20:09 Oxygen Delivery Method Room Air 07/20/24 20:09 Course Orders Ordered: ED Orders 07/21/24 02:02 CT abdomen pelvis w con Stat 07/21/24 04:06 Urine Culture Stat Discontinued Medications Hydrocodone Bitart/Acetaminophen (Hydrocodone/Acet 5/325 Prepack) 1 bottle MISC DIRECTED ONE Stop: 07/21/24 04:02 Last Admin: 07/21/24 05:11 Dose: 1 bottle Documented By: DINH Ceftriaxone Sodium 1,000 mg/ (Sodium Chloride) 100 mls @ 200 mls/hr IV NOW ONE Stop: 07/21/24 02:04 Last Infusion: 07/21/24 03:30 Dose: Infused Documented By: Infusion: 07/21/24 02:46 Dose: 200 mls/hr Documented By: Infusion: 07/21/24 02:22 Dose: 0 mls/hr Documented By: Admin: 07/21/24 02:21 Dose: 200 mls/hr Documented By: DANYA Ketorolac Tromethamine (Ketorolac 30 Mg/Ml Vial) 15 mg IV NOW ONE Stop: 07/21/24 00:54 Last Admin: 07/21/24 00:58 Dose: 15 mg Documented By: CORBY Morphine Sulfate (Morphine 4 Mg/Ml Inj) 4 mg IV NOW ONE Stop: 07/21/24 02:03 Last Admin: 07/21/24 02:19 Dose: 4 mg Documented By: DANYA Ondansetron HCl (Ondansetron 4 Mg/2 Ml Inj) 4 mg IV NOW PRN PRN Reason: Nausea And Vomiting Last Admin: 07/20/24 20:27 Dose: 4 mg Documented By: ASHWIN Ondansetron HCl (Ondansetron 4 Mg Odt) 4 mg PO NOW PRN PRN Reason: Nausea And Vomiting Ondansetron HCl (Ondansetron 4 Mg/2 Ml Inj) 4 mg IV NOW ONE Stop: 07/21/24 02:03 Last Admin: 07/21/24 02:19 Dose: 4 mg Documented By: DANYA Ondansetron HCl (Ondansetron 4 Mg Odt Prepack) 1 bottle MISC DIRECTED ONE Stop: 07/21/24 04:02 Last Admin: 07/21/24 05:10 Dose: 1 bottle Documented By: DINH Vital Signs Vital signs: Vital Signs - 8 hr 07/21/24 00:51 07/21/24 01:16 07/21/24 01:16 Pulse Rate 88 86 Respiratory Rate 16 20 Blood Pressure 123/65 126/72 Pulse Oximetry 99 98 Oxygen Delivery Method Room Air 07/21/24 01:30 07/21/24 01:30 07/21/24 02:00 Pulse Rate 80 82 Respiratory Rate 19 Blood Pressure 127/70 Pulse Oximetry 97 99 Oxygen Delivery Method Room Air 07/21/24 02:00 07/21/24 02:48 07/21/24 02:48 Pulse Rate 74 Respiratory Rate Blood Pressure 131/75 107/63 Pulse Oximetry 99 Oxygen Delivery Method 07/21/24 03:00 07/21/24 03:00 07/21/24 03:30 Pulse Rate 76 70 Respiratory Rate Blood Pressure 111/62 Pulse Oximetry 97 97 Oxygen Delivery Method 07/21/24 03:31 07/21/24 03:31 07/21/24 04:00 Pulse Rate 73 Respiratory Rate Blood Pressure 129/65 129/82 Pulse Oximetry 97 Oxygen Delivery Method 07/21/24 04:00 07/21/24 05:14 Pulse Rate 78 86 Respiratory Rate 16 Blood Pressure 131/64 Pulse Oximetry 96 98 Oxygen Delivery Method Room Air MDM - Abdominal Pain Lab Data 07/20/24 20:23 07/20/24 20:23 Labs: Lab Results 07/20/24 07/20/24 Range/Units 20:23 21:13 WBC 13.5 H (4.5-11.0) X10^3/uL RBC 5.10 (4.0-5.2) X10^6/uL Hgb 14.9 (12.0-16.0) g/dL Hct 44.7 (36-46) % MCV 87.8 (80-100) fL MCH 29.2 (26-34) PG MCHC 33.2 (30-36) % RDW 13.5 (11.6-14.8) % Plt Count 472 H (150-400) X10^3/uL Neut % (Auto) 69.4 (50-75) % Lymph % (Auto) 20.9 L (25-40) % [place]ois % (Auto) 7.3 (3-14) % Eos % (Auto) 1.9 L (2-4) % Baso % (Auto) 0.5 (0-2) % Neut # (Auto) 9400 H (5090-0104) /uL Lymph # (Auto) 2800 (8027-7999) /uL [place]ois # (Auto) 1000 H (0-900) /uL Eos # (Auto) 300 (0-450) /uL Baso # (Auto) 100 (0-100) /uL Sodium 136 L (137-145) mmol/L Potassium 4.3 (3.4-5.1) mmol/L Chloride 103 (98-107) mmol/L Carbon Dioxide 29 (22-32) mmol/L BUN 14 (7-17) mg/dL Creatinine 0.97 (0.52-1.04) mg/dL Estimated GFR > 60 (>60) mL/min BUN/Creatinine Ratio 14.4 (6-22) Glucose 100 (70-100) mg/dL Calcium 9.7 (8.4-10.2) mg/dL Total Bilirubin 0.5 (0.2-1.3) mg/dL AST 32 (14-36) IU/L ALT 27 (<35) IU/L Alkaline Phosphatase 69 (38-126) U/L Total Protein 7.5 (6.3-8.2) g/dL Albumin 4.2 (3.5-5.0) g/dL Globulin 3.3 (1.7-4.1) g/dL Albumin/Globulin Ratio 1.3 (1.0-2.8) Lipase 152 (23-300) U/L Urine RBC 30-100/hpf H (0-5/HPF) Urine WBC 1-5/hpf (0-5/HPF) Ur Squamous Epith Cells 1-5 /hpf (0-5/HPF) Urine Bacteria Few (2-10) H (None) Urine Mucus 1+ H (Negative) Ur Culture Indicated? Cult not indicated Vol Urine Centrifuged 10ml (spun) Point of care testing: Point of Care Testing Test Results Negative Urine Dip Bedside Urine Glucose Negative Bedside Urine Bilirubin - Negative Bedside Urine Ketone - Negative Urine Specific [place] 1.01 Bedside Urine Occult Blood +++ Bedside Urine pH 6.0 Bedside Urine Protein +/- 15 Bedside Urine Urobilinogen - Negative Bedside Urine Nitrite - Negative Bedside Urine Leukocytes +/- 15 Esterase MDM Narrative Medical decision making narrative: Labs show white count of 13.5, hemoglobin of 14.9 platelets of 472 low lymphocytes. Labs show sodium 136, otherwise normal electrolytes BUN 14 creatinine 0.97 glucose of 100 LFTs are negative with a lipase of 152. Point of care urine is positive for blood, negative for nitrates positive for leukocyte esterase. Urine micro shows red cells 3-100, white blood cells 1-5, squamous 1-5 with few bacteria. Point of care is negative. Acute abdominal series shows no acute abnormality mild fecal loading. On 05/27/2024 patient did have a pelvic ultrasound that showed a poorly characterized top loader uterine segment complex mass could represent degenerating fibroid recommended short term ultrasound follow up for MRI. Patient was scheduled for hysterectomy on 08/12 and also has known endometriosis. After discussion based on patient's recent history CT abdomen pelvis was obtained shows mild left hydroureteronephrosis without obstructing renal or ureteral calculus findings could be related recently passed renal stone or infection no evidence of colitis diverticulitis bowel obstruction or acute appendicitis uterus is leiomyomatous. Bladder is unremarkable large volume of stool within the colon normal-appearing appendix. Patient's urine does have blood does have leukocyte esterase 1-5 white cells based on patient's symptoms I suspect she may have pyelonephritis. She was still quite painful when she went to CT but is feeling improved after antibiotics and pain medications. She does not appear septic she was otherwise improved in her symptoms we will discharge home on oral antibiotics with short term pain medication and return precautions. Reviewed findings with patient patient has not had a lot of urinary symptoms but my suspicion for kidney stone is lower as she still had symptoms when she went for CT patient does have flank pain which is reproducible on exam she has been afebrile. She does have blood as well as leukocyte esterase in her urine. Patient feels much improved after additional dose of the pain medications and has tolerated oral challenge here in the department. We will discharge home on oral antibiotics, antiemetic and pain medication with strict return precautions. Discharge Plan Departure Patient Disposition: Home Clinical Impression: Pyelonephritis Instructions: DI for Kidney Infection Activity Restrictions/Additional Instructions: Your workup shows a little bit of left hydroureteronephrosis or swelling of the kidney based on your workup today suspect you have some pyelonephritis or infection of the bladder and kidney tract. You can take ibuprofen up to 600 mg every 6 hours, you can take [place] 1-2 tablets every 6 hours as needed for pain. You can take Zofran 1 tablet every 6 hours as needed for nausea. Take antibiotics until completed. Prescription was sent to [facility] in [place]. Please return for fevers, rapidly worsening abdominal back or flank pain, persistent vomiting, black or bloody stools, inability to urinate or other new or concerning changes. Prescriptions: New cefpodoxime 200 mg tablet 200 mg PO BID Qty: 14 0RF Rx Instructions: must administer with a meal/food hydrocodone-acetaminophen 5-325 mg tablet 1 tab PO Q6H PRN (Reason: pain) Qty: 10 0RF No Action levonorgestrel-ethinyl estrad 0.15 mg-30 mcg (91) tablets,dose pack,3 month 1 tab PO DAILY Qty: 91 2RF atorvastatin 20 mg tablet 20 mg PO ONCE PM Qty: 90 1RF hydrocodone-acetaminophen 5-325 mg tablet 1 tab PO BID PRN (Reason: pain) Qty: 30 0RF methocarbamol 750 mg tablet 750 mg PO ONCE PM Qty: 30 1RF citalopram 20 mg tablet 40 mg PO DAILY Qty: 180 1RF trazodone 100 mg tablet 100 mg PO BEDTIME PRN (Reason: sleep) Qty: 90 1RF meloxicam 15 mg tablet 15 mg PO DAILY Qty: 30 1RF cephalexin 500 mg capsule 500 mg PO TID Qty: 21 0RF Rx Instructions: take three times a day for a week lisdexamfetamine 40 mg capsule 40 mg PO DAILY Qty: 30 0RF mecobalamin (vitamin B12) PO Referrals: Rocael Villanueva DO [Primary Care Provider] - Stand Alone Forms: Patient Portal/API/Survey
--- NOTE | 2024-07-21 02:02 | DI.CT.S_ITS ---
PROCEDURE: CT ABDOMEN PELVIS W CON INDICATIONS: abd pain, L flank/ant, stone vs fibroid, ovarian cyst, diver TECHNIQUE: After the administration of intravenous contrast, axial sections acquired from the lung bases to the pubic symphysis. Coronal and sagittal reformats were performed. For radiation dose reduction, the following was used: automated exposure control, adjustment of mA and/or kV according to patient size. COMPARISON: [facility], CT, CT ABDOMEN PELVIS W CON, 10/10/2022, 13:07. FINDINGS: Image quality: Diagnostic Lower chest: Unremarkable Normal heart size Liver: Unremarkable Gallbladder and biliary system: Unremarkable, nondilated Pancreas: Mildly ectatic duct at 2-3 mm without pathologic dilation or obstructing mass Spleen: Nonenlarged Adrenals: No discrete nodules Kidneys: No solid mass. No hydronephrosis. Mildly ectatic left ureter. Vessels and lymph nodes: The main portal vein is patent. No abdominal aortic aneurysm. No pathologic lymph nodes by size criteria. Bowel and peritoneum: No evidence of small bowel obstruction. No pathologic ascites. No small bowel obstruction. Body wall: Unremarkable Pelvis: Similar multiple small enhancing uterine fibroids. Unremarkable adnexal structures on CT evaluation. Bones: No acute or suspicious osseous finding. There are degenerative changes. IMPRESSION: No hydronephrosis or obstructing calcified stone. Mildly ectatic left ureter, recently passed stone is possible. Correlate urinalysis. Presumed uterine fibroids are present, also seen previously. Unremarkable adnexal structures on CT evaluation. Ultrasound could further evaluate the reproductive organs if clinically necessary. No other acute abdominal pelvic pathology identified. Incidental findings above. Dictated by: Pranav Sheffield M.D. on 07/21/2024 at 9:11 Approved by: Pranav Sheffield M.D. on 07/21/2024 at 9:18
[2024-07-21] MEDS: MORPHINE 4 MG/ML INJ IV (02:19)
[2024-07-21] MEDS: ONDANSETRON 4 MG/2 ML INJ IV (02:19)
[2024-07-21] MEDS: cefTRIAXone 1,000 MG in SODIUM CHLORIDE 0.9% 100 ML 200 MG IV (02:21)
[2024-07-21] MEDS: ONDANSETRON 4 MG ODT PREPACK 1 BOTTLE MISC (05:10)
[2024-07-21] MEDS: HYDROCODONE/ACET 5/325 PREPACK 1 BOTTLE MISC (05:11)
== END 2024-07-21 05:51 | disposition home or self-care (01) ==
PROVIDERS: Emergency Provider Emergency Medicine; PCP Family Medicine
DX: N12 Tubulo-interstitial nephritis, not specified as acute or chronic (principal)
CPT/HCPCS: 36415; 74022; 74177; 80053; 81003; 81015; 81025; 83690; 85025; 87086; 96365; 96375; 96376; 99284; J0696; J1885; J2270; J2405; Q9967

== ENCOUNTER → 2024-08-05 09:14 | Outpatient (CLI) | payer OTHER, SELFPAY ==
[2024-08-05 09:51] LABS: Appearance Urine UA CLEAR; Bilirubin Urine UA NEGATIVE (NEGATIVE); Color Urine UA YELLOW; Glucose Urine UA NEGATIVE (Negative); Ketones Urine UA NEGATIVE (NEGATIVE); Leukocyte Esterase Urine UA 1+ (NEGATIVE); Nitrite Urine UA NEGATIVE (Negative); Occult Blood Urine UA TRACE-INTACT (Negative); Protein Urine UA NEGATIVE (Negative); Specific Gravity Urine UA 1.015 (1.000-1.035); Urobilinogen Urine UA 0.2 E.U./dL (0.2)
[2024-08-05 10:00] LABS: Add Manual Diff / Slide Review NO; Basophils Absolute Auto 0 /uL (0-100); Basophils Percent Auto 0.5 % (0-2); Eosinophils Absolute Auto 100 /uL (0-450); Hematocrit 41.7 % (36-46); Hemoglobin 13.9 g/dL (12.0-16.0); Lymphocytes Absolute Auto 1700 /uL (1100-4500); Lymphocytes Percent Auto 21.6 % (25-40); Mean Corpuscular HGB Conc 33.2 % (30-36); Mean Corpuscular Volume 87.5 fL (80-100); Monocytes Absolute Auto 500 /uL (0-900); Monocytes Percent Auto 6.4 % (3-14); Neutrophils Absolute Auto 5400 /uL (1500-7000); Neutrophils Percent Auto 70.5 % (50-75); Platelet Count 355 X10^3/uL (150-400); Red Blood Cell Count 4.77 X10^6/uL (4.0-5.2); Red Cell Distribution Width 13.9 % (11.6-14.8); White Blood Cell Count 7.7 X10^3/uL (4.5-11.0)
[2024-08-05 10:04] LABS: Bacteria Urine Many (>30); Culture Indicated Urine Specimen Cultured; Mucus Urine 1+ (Negative); RBC Urine 1-5/HPF (0-5/HPF); Squamous Epithelial Cell Urine 5-10 /HPF (0-5/HPF); Urine Volume 10mL (spun); WBC Urine 5-10/HPF (0-5/HPF)
[2024-08-05 10:35] LABS: Alanine Aminotransferase 21 IU/L (<35); Albumin 4.3 g/dL (3.5-5.0); Albumin Globulin Ratio 1.5 (1.0-2.8); Alkaline Phosphatase 65 U/L (38-126); Aspartate Aminotransferase 30 IU/L (14-36); BUN Creatinine Ratio 19.5 (6-22); Bilirubin Total 0.3 mg/dL (0.2-1.3); Blood Urea Nitrogen 15 mg/dL (7-17); Calcium 8.9 mg/dL (8.4-10.2); Carbon Dioxide 25 mmol/L (22-32); Chloride 104 mmol/L (98-107); Estimated Glomerular Filt Rate > 60 mL/min (>60); Globulin 2.9 g/dL (1.7-4.1); Glucose 89 mg/dL (70-100); HEMOLYSIS < 15 (0-50); Potassium 3.9 mmol/L (3.4-5.1); Sodium 136 mmol/L (137-145); Total Protein 7.2 g/dL (6.3-8.2)
[2024-08-05 10:50] LABS: Free T4, Direct Thyroxine 0.87 ng/dL (0.78-2.19)
[2024-08-05 11:04] LABS: Thyroid Stimulating Hormone 1.23 uIU/mL (0.47-4.68)
== END ==
PROVIDERS: PCP Family Medicine; Referring Provider Family Medicine; Visit Provider Family Medicine
DX: E78.5 Hyperlipidemia, unspecified (principal); F32.9 Major depressive disorder, single episode, unspecified; N80.9 Endometriosis, unspecified; N12 Tubulo-interstitial nephritis, not specified as acute or chronic
CPT/HCPCS: 36415; 80053; 81001; 84439; 84443; 85025; 87086

== ENCOUNTER 2024-08-12 10:07 | Day surgery (SDC) | payer OTHER, SELFPAY ==
[2024-08-06 09:27] VITALS: BMI 27.8
[2024-08-12] VITALS (11 sets, daily range): BP systolic 102–118; BP diastolic 51–70; PULSE 70–97; RESP 14–18; TEMP 35.6–37.1; O2SAT 96–100; BMI 27.4; BMI 28.6
--- NOTE | 2024-08-12 | PATH_ITS ---
[facility] Accession Number: [id number] No. of containers..01 Tissue . 01 Material submitted: . uterus - UTERUS, CERVIX, RIGHT FALLOPIAN TUBE AND BILATERAL OVARIES . 01 Diagnosis: UTERUS, CERVIX, RIGHT FALLOPIAN TUBE, AND BILATERAL OVARIES, HYSTERECTOMY, RIGHT SALPINGETOMY, AND BILATERAL OOPHORECTOMY: Uterus with leiomyomas (up to 2.1 cm) and inactive to atrophic decidualized endometrium, suggestive of progestin effect. Histologically unremarkable cervix, right fimbriated fallopian tube, and bilateral ovaries. Negative for malignancy. [facility] 08/16/2024 1636 Local . 01 Electronically signed: . Tiarra Montenegro DO, Pathologist NPI- [id number] . 01 Gross description: . Received in formalin labeled with two patient identifiers and uterus, cervix, right fallopian tube, and bilateral ovaries. . Received in formalin is a uterus with attached cervix, attached right ovary, and attached right fimbriated fallopian tube, and a detached left ovary. The uterus measures 8.4 x 4.0 x 3.1 cm (71 grams), and has a diffusely hemorrhagic serosal surface. There is a 3.5 x 1.5 x 0.2 cm indurated markedly fibrotic serosal area located at the left parametrial tissue. In addition, there are multiple white, whorled, well-circumscribed, subserosal nodules ranging from 0.4 to 1.8 cm in greatest dimension. The right parametrium is inked red and the left parametrium is inked yellow. There is a 2.2 x 2.0 x 1.1 cm attached cervix. The ectocervix is smooth, white, glistening but otherwise unremarkable. There is a 0.8 cm mucoid-filled, slit like, patent os. The endocervical canal is mora, trabeculated, and free of exophytic lesions. There is a 3.5 x 1.5 cm triangular, mora-white, finely granular endometrial lining which averages 0.2 cm in thickness. The red-mora myometrium is smooth with multiple white, whorled, well-circumscribed nodules ranging from 0.4 to 2.1 cm in greatest dimension. These nodules are located both intramural and subserosally. There is no evidence of cystic changes or necrosis in the nodules. . The attached right ovary meausures 2.6 x 1.5 x 0.8 cm and has a smooth white glistening lobulated serosal surface. Sectioning shows a white homogeneous fibrotic ovarian parenchyma. The accompanying attached fimbriated fallopian tube measures 4.1 cm in length by 0.4 cm in diameter and has a smooth mora-lubin glistening serosal surface, and is sectioned to show a 0.3 cm stellate lumen. The left detached ovary measures 2.0 x 1.5 x 1.0 cm, and has a smooth white glistening serosal surface. It is serially sectioned to show a white, homogeneous, ovarian parenchyma. . Belt Sander sections are submitted as labeled: A1: Posterior cervix. A2: Anterior cervix. A3: Indurated and fibrotic area at left parametrial tissue. A4: Full thickness endomyometrium, posterior wall. A5: Full thickness endomyometrium, anterior wall. A6-A7: Belt Sander sections of myometrial nodules (3 sections in each cassette). A8: Right ovary. A9: Right fallopian tube to include entire fimbriated end. A10: Left ovary. ([id number]) /MISAEL 08/13/20242012 Local . 01 Pathologist provided ICD-10: R10.2 . 01 CPT . 690006 Specimen Comment: A courtesy copy of this report has been sent to [phone] Performed at: [address] [address], [place], [place] [id number] MD Joaquín Roa MD Phone: [phone]
[2024-08-12] MEDS: LACTATED RINGERS 1,000 ML 42 ML IV ×2 (10:45→12:27)
[2024-08-12] MEDS: SCOPOLAMINE 1 PATCH TOP (10:45)
[2024-08-12] MEDS: ACETAMINOPHEN 325 MG TABLET 975 MG PO (10:45)
--- NOTE | 2024-08-12 11:02 | PM.PREOP ---
Pre-operative Note COVID-19 COVID-19 status: Not tested Interval Note History & Physical reviewed/Exam performed by Physician: Yes Changes to H&P: No
[2024-08-12] MEDS: CEFAZOLIN 2 GM/100 ML PREMIX 100 ML IV (11:35)
--- NOTE | 2024-08-12 11:46 | SUR.OPER ---
Lithotomy on padded OR bed. [place] Pad Positioner under torso. Head on pillow, arms padded and tucked at sides. Legs secured in padded yellow fins stirrups.
[2024-08-12] MEDS: BUPIVACAINE 0.5% W/ EPI (PF) 30 ML VIAL INJ (11:59)
--- NOTE | 2024-08-12 13:34 | P.OP_ITS ---
Operative Date/Time/Diagnoses Date of procedure: 08/12/24 Time of procedure: 11:15 Pre-op diagnosis: Uterine fibroids Chronic pelvic pain Post-op diagnosis: same Procedure & Clinicians Procedure: Procedures Operation Date: 08/12/24 11:45 Actual Procedure Side Surgeon p Laparoscopic Total Hysterectomy with RIGHT salpingo-oophorectomy, LEFT OOPHORECTOMY Cody Malik MD Indications: Maggi is a 49-year-old G0, LMP many years ago as she is on continuous oral contraceptives for many years. 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 The right horn and fallopian tube were removed in @ 2007 as the endometrial cavity of the right horn did not communicate with the cervix, contributing to her pelvic pain.? She reports this is significantly improved her pain, and that she has been using continuous OCP since that time to good effect.? Today, she reports that her pain is well controlled on this regimen.? She denies any history of migraines with auras, has no hypertension and does not smoke, and denies any history of VTE.? She is BRCA 1/2 negative but a sister was BRCA 1 positive and of breast cancer. The patient denies any gynecologic concerns or complaints today.? The patient denies any history of , and denies any abnormal Pap smears, pelvic infections, or other digital asset coordinator history.? She and her have 4 adopted children together, She denies any contributory medical, surgical, or social history.? She reports that she is current for her mammogram, and performs BSE faithfully currently she experiences very occasional breakthrough spotting with continuous OCs but denies regular menses. She does have lower abdominal discomfort and bloating associated with intermittent diarrhea which is currently being evaluated by Gastroenterology and she is scheduled for both upper and lower endoscopy next month. She can not identify any association between her episodes of breakthrough bleeding and/or pelvic discomfort and the intermittent episodes of diarrhea. Her Pap is current with her most recent Co-testing in June 2020. Her most recent pelvic imaging is from an abdominal/pelvic CT performed 10/10/2022 due to an episode of pancreatitis which shows: PROCEDURE:? CT ABDOMEN PELVIS W CON ? INDICATIONS:? abd pain, pancreatitis ? TECHNIQUE:? After the administration of oral and IV contrast, axial sections were acquired from the lung bases to the pubic symphysis.? Coronal and sagittal reformats were perfo rmed.? For radiation dose reduction, the following was used:? automated exposure control, adjustment of mA and/or kV according to patient size. ? COMPARISON:? [facility], , ABDOMEN COMPLETE, 10/04/2022, 8:55. ? FINDINGS:? Image quality:? Excellent.? ? Lung bases:? Unremarkable.? ? Heart:? No significant findings. ? ? ABDOMEN: Liver:? Unremarkable.? ? Gallbladder:? Unremarkable.? ? Biliary ducts:? Unremarkable.? ? Pancreas:? Unremarkable.? ? Spleen:? Unremarkable.? ? Adrenal Glands:? Unremarkable.? ? Kidneys and Ureters:? Suspect small 1-2 mm nonobstructive renal calculi bilaterally.? No hydronephrosis.? Kidneys are normal in size and enhance symmetrically.? ? ? Stomach and Bowel:? Stomach, small bowel loops, and colon are normal in caliber.? There is a moderate amount of stool in colon. Peritoneum:? No abnormal intraperitoneal fluid.? No free air.? ? Ventral Wall: ? No hernia.? Abdominal Nodes:? No retroperitoneal or mesenteric adenopathy by size criteria.? Vessels:? Aorta and inferior vena cava are normal in size.? ? PELVIS: Pelvic Organs:? There are several enhancing nodules in uterus, most likely uterine fibroids.? ? Bladder:? Unremarkable.? ? Pelvic Nodes: No enlarged lymph nodes.? Miscellaneous: No inguinal hernias are seen. ? ? ? Bones:? There is a small indeterminate sclerotic focus in the superior endplate of T11. ?? IMPRESSION:? ? 1. Normal CT appearance of pancreas, which does not exclude clinical pancreatitis.? No findings to suggest pancreatic necrosis.? No pancreatic duct dilation, calcification or pseudocysts. ? 2. Suspect bilateral small nonobstructive renal calculi. ? 3. A moderate amount of stool in colon. ? 4. Enhancing nodules injuries are most likely uterine fibroids.? We had an extended discussion regarding possible causes of her pelvic discomfort and slight uterine enlargement. The pain she is experiencing is duplicated by palpation of the uterus therefore she would like definitive therapy in the form of hysterectomy with bilateral salpingo-oophorectomy understanding that post surgical hormone replacement therapy will be necessary. She presents today for her scheduled surgery. Surgeon: Cody Malik Clinical Services Manager: Michelle Delcid Anesthesia Type: General Operative Notes Findings: The uterus is approximately 6-8 weeks in size and myomatous. The left fallopian tube is surgically absent. The right tube and ovary appeared to be normal with the exception of some adhesions to the pelvic sidewall. There was no evidence of endometriosis in either anterior or posterior cul-de-sacs. The remainder of the abdomen and pelvis are normal the laparoscopic inspection. Closure Type: primary Specimen(s): right tube & ovary, uterus and other (Left ovary) Estimated blood loss (mL): 75 Blood products transfused: none Procedure in detail: With the patient in modified dorsal lithotomy position preparations were made by prepping and draping the patient in usual manner for vaginal surgery and insertion of Schaffer catheter. A pre-surgical time-out was then taken in accordance with [facility] policy. A bivalve speculum was then placed in the vagina and the cervix visualized. The anterior lip of the cervix was then grasped with a single-tooth tenaculum. The uterus was sounded to 4 cm, the endocervical canal dilated slightly, and a VCare uterine manipulator with a small colpotomy cup was placed. The umbilicus was then infiltrated with 0.5% Marcaine with epinephrine. A 1 cm umbilical incision was made transversely and a Veress needle was used to insufflate the abdominal cavity with carbon dioxide. Once the abdomen was appropriately insufflated, a 5 mm trocar and sleeve were then placed through the umbilical incision. The scope was placed through the trocar and the initial assessment of the intra-abdominal contents carried out. A 2nd and 3rd 5 mm port was then placed 1st in the right mid quadrant from then the left mid quadrant by infiltration of the skin and subcutaneous tissues, a 1 cm transverse incision and insertion of the 5 mm bladeless port. Using a 3 puncture technique, the abdomen and pelvis were inspected laparoscopy and photographically documented. Uterus is mobilized with the VCare manipulator and attention turned to the right adnexa. The distal tube was then grasped and the infundibulopelvic ligament divided after coagulation with the PowerSeal device. The dissection was then carried out toward the cornua, then carried down using the PowerSeal device so as to divide the round ligament with blunt and sharp dissection of the broad down to the level of the uterine artery. The uterine artery was then skeletonized after development of a bladder flap, coagulated, and divided. Once hemostasis was assured on the right side, attention was turned to the left and the infundibulopelvic ligament was coagulated and divided with a power Seal device. The left ovary was then placed aside for subsequent retrieval. The round ligament, and broad ligament were dissected in a fashion exactly the same as it had been on the right. The left uterine artery was then visualized after skeletonization and coagulated and divided. The uterus was seen to manoj after coagulation of both your arteries and the cup was identified through the vaginal muscularis at its insertion with the body of the cervix. Circumferential excision of the vaginal cup was accomplished without difficulty using monopolar current and the uterus mobilized. The uterus was then removed through the vagina. A 4th 5 mm trocar and sleeve was then placed deep in the right lower quadrant after infiltration of the skin and subcutaneous tissues with 0.5% Marcaine with epinephrine. The vaginal cuff was then closed in 2 layers with 2-0 strata fix suture. Hemostasis was excellent, and the pelvis inspected laparoscopically. 20 cc of ropivacaine were then instilled into the pelvis to help with postoperative pain. The pelvis was inspected for any abnormality or bleeding, and the ureters were each seen to be peristalsing freely. With complete hemostasis assured, the pneumoperitoneum was vented and the ports removed. All of the 5 mm ports were then closed with 4-0 Monocryl on the skin using inverted interrupted sutures. Skin glue was placed and after the glue was dried, an appropriate dressing was applied. The case was then terminated, the patient awakened, and then transferred to PACU after having tolerated the procedure well. Complications: none Post-operative Condition: stable Disposition: PACU Plan for aftercare: Routine postoperative care follow-up planned for 2 weeks
[2024-08-12] MEDS: ONDANSETRON 4 MG/2 ML INJ IV ×3 (14:07→20:05)
[2024-08-12] MEDS: KETOROLAC 30 MG/ML VIAL IV ×2 (14:27→19:52)
[2024-08-12] MEDS: LACTATED RINGERS 1,000 ML 100 ML IV (14:28)
[2024-08-12] MEDS: HYDROMORPHONE 1 MG INJ IV (15:25)
[2024-08-12] MEDS: OXYCODONE IR 5 MG TABLET PO ×2 (16:47→21:28)
[2024-08-12] MEDS: ACETAMINOPHEN 325 MG TABLET 650 MG PO (17:57)
[2024-08-12] MEDS: methocarbamoL 500 MG TABLET 750 MG PO (20:03)
[2024-08-12] MEDS: TRAZODONE 50 MG TABLET 100 MG PO (20:04)
[2024-08-12] MEDS: DOCUSATE 100 MG CAPSULE 200 MG PO (20:05)
[2024-08-12] MEDS: ATORVASTATIN 20 MG TABLET PO (20:05)
[2024-08-13] MEDS: LACTATED RINGERS 1,000 ML 100 ML IV (02:11)
[2024-08-13] MEDS: KETOROLAC 30 MG/ML VIAL IV ×2 (02:18→08:13)
[2024-08-13 04:54] VITALS: BP 102/58; PULSE 62; RESP 16; TEMP 36.4; O2SAT 96
[2024-08-13] MEDS: OXYCODONE IR 5 MG TABLET PO ×2 (04:54→09:15)
[2024-08-13] MEDS: ACETAMINOPHEN 325 MG TABLET 650 MG PO ×2 (04:55→11:45)
[2024-08-13] MEDS: ONDANSETRON 4 MG/2 ML INJ IV (04:57)
[2024-08-13 05:31] LABS: Add Manual Diff / Slide Review NO; Basophils Absolute Auto 0 /uL (0-100); Basophils Percent Auto 0.2 % (0-2); Eosinophils Absolute Auto 0 /uL (0-450); Eosinophils Percent Auto 0.1 % (2-4); Hematocrit 39.7 % (36-46); Hemoglobin 13.2 g/dL (12.0-16.0); Lymphocytes Absolute Auto 1700 /uL (1100-4500); Lymphocytes Percent Auto 11.7 % (25-40); Mean Corpuscular HGB Conc 33.4 % (30-36); Mean Corpuscular Hemoglobin 28.9 PG (26-34); Mean Corpuscular Volume 86.7 fL (80-100); Monocytes Absolute Auto 800 /uL (0-900); Monocytes Percent Auto 5.7 % (3-14); Neutrophils Absolute Auto 11800 /uL (1500-7000); Neutrophils Percent Auto 82.3 % (50-75); Platelet Count 364 X10^3/uL (150-400); Red Blood Cell Count 4.58 X10^6/uL (4.0-5.2); Red Cell Distribution Width 13.8 % (11.6-14.8); White Blood Cell Count 14.4 X10^3/uL (4.5-11.0)
--- NOTE | 2024-08-13 07:01 | PC.NURSE ---
Karime d/c'd @ 6351. Patient stood at bedside and ambulated in room, tolerated well. Pain controlled w/ PO pain medications overnight. Tolerating PO intake well, starting to pass gas this morning. Minimal sanguinous spotting on german-pad.
[2024-08-13 08:00] VITALS: BP 101/56; PULSE 76; RESP 14; TEMP 35.8; O2SAT 96
[2024-08-13] MEDS: DOCUSATE 100 MG CAPSULE 200 MG PO (08:12)
[2024-08-13] MEDS: CITALOPRAM 10 MG TABLET 40 MG PO (08:12)
--- NOTE | 2024-08-13 08:40 | PM.DS.IH.1 ---
History of Present Illness History of Present Illness Date Patient Seen: 08/13/24 Time Patient Seen: 08:40 Chief complaint: OPB Narrative: Maggi is a 49-year-old G0, LMP many years ago as she is on continuous oral contraceptives for many years. 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 The right horn and fallopian tube were removed in @ 2007 as the endometrial cavity of the right horn did not communicate with the cervix, contributing to her pelvic pain.? She reports this is significantly improved her pain, and that she has been using continuous OCP since that time to good effect.? Today, she reports that her pain is well controlled on this regimen.? She denies any history of migraines with auras, has no hypertension and does not smoke, and denies any history of VTE.? She is BRCA 1/2 negative but a sister was BRCA 1 positive and of breast cancer. The patient denies any gynecologic concerns or complaints today.? The patient denies any history of , and denies any abnormal Pap smears, pelvic infections, or other stock or delivery clerk history.? She and her have 4 adopted children together, She denies any contributory medical, surgical, or social history.? She reports that she is current for her mammogram, and performs BSE faithfully currently she experiences very occasional breakthrough spotting with continuous OCs but denies regular menses. She does have lower abdominal discomfort and bloating associated with intermittent diarrhea which is currently being evaluated by Gastroenterology and she is scheduled for both upper and lower endoscopy next month. She can not identify any association between her episodes of breakthrough bleeding and/or pelvic discomfort and the intermittent episodes of diarrhea. Her Pap is current with her most recent Co-testing in June 2020. Her most recent pelvic imaging is from an abdominal/pelvic CT performed 10/10/2022 due to an episode of pancreatitis which shows: PROCEDURE:? CT ABDOMEN PELVIS W CON ? INDICATIONS:? abd pain, pancreatitis ? TECHNIQUE:? After the administration of oral and IV contrast, axial sections were acquired from the lung bases to the pubic symphysis.? Coronal and sagittal reformats were performed.? For radiation dose reduction, the following was used:? automated exposure control, adjustment of mA and/or kV according to patient size. ? COMPARISON:? [facility], , ABDOMEN COMPLETE, 10/04/2022, 8:55. ? FINDINGS:? Image quality:? Excellent.? ? Lung bases:? Unremarkable.? ? Heart:? No significant findings. ? ? ABDOMEN: Liver:? Unremarkable.? ? Gallbladder:? Unremarkable.? ? Biliary ducts:? Unremarkable.? ? Pancreas:? Unremarkable.? ? Spleen:? Unremarkable.? ? Adrenal Glands:? Unremarkable.? ? Kidneys and Ureters:? Suspect small 1-2 mm nonobstructive renal calculi bilaterally.? No hydronephrosis.? Kidneys are normal in size and enhance symmetrically.? ? ? Stomach and Bowel:? Stomach, small bowel loops, and colon are normal in caliber.? There is a moderate amount of stool in colon. Peritoneum:? No abnormal intraperitoneal fluid.? No free air.? ? Ventral Wall: ? No hernia.? Abdominal Nodes:? No retroperitoneal or mesenteric adenopathy by size criteria.? Vessels:? Aorta and inferior vena cava are normal in size.? ? PELVIS: Pelvic Organs:? There are several enhancing nodules in uterus, most likely uterine fibroids.? ? Bladder:? Unremarkable.? ? Pelvic Nodes: No enlarged lymph nodes.? Miscellaneous: No inguinal hernias are seen. ? ? ? Bones:? There is a small indeterminate sclerotic focus in the superior endplate of T11. ?? IMPRESSION:? ? 1. Normal CT appearance of pancreas, which does not exclude clinical pancreatitis.? No findings to suggest pancreatic necrosis.? No pancreatic duct dilation, calcification or pseudocysts. ? 2. Suspect bilateral small nonobstructive renal calculi. ? 3. A moderate amount of stool in colon. ? 4. Enhancing nodules injuries are most likely uterine fibroids.? We had an extended discussion regarding possible causes of her pelvic discomfort and slight uterine enlargement. The pain she is experiencing is duplicated by palpation of the uterus therefore she would like definitive therapy in the form of hysterectomy with bilateral salpingo-oophorectomy understanding that post surgical hormone replacement therapy will be necessary. She presents today for her scheduled surgery. Discharge Providers Provider Date of admission: 08/12/2024 Discharge Date: 08/13/24 Primary care physician: Rocael Villanueva DO Discharge provider: Cody Malik MD Summary Hospital Course Discharge Diagnosis: Chronic pelvic pain BRCA mutation positive Status post total laparoscopic hysterectomy with right salpingo oophorectomy, left oophorectomy Hospital Course: Maggi was admitted on 08/12/2024 and underwent an uneventful total laparoscopic hysterectomy with a right salpingo-oophorectomy and left oophorectomy later that day. Full details of the procedure well summarized on my operative note of that date. Following surgery the patient has done extremely well with prompt return of bowel and bladder function, she is ambulating independently, tolerating regular diet, and her pain is well controlled with oral pain medications. She will be discharged at this time to home in an afebrile normotensive condition after counseling regarding precautionary symptoms, limitations activity, medications, and plans for follow-up which will be in 2 weeks. Status at Discharge Cognitive/behavioral status at discharge: oriented Functional status at discharge: independent ambulation Overall status at discharge: patient is progressing back to baseline Time Spent with Patient Time spent: Less than 30 minutes Exam Vital Signs (past 8 hours): - 08/13/24 04:54 08/13/24 08:00 Temperature 97.5 F L 96.4 F L Pulse Rate 62 76 Respiratory Rate 16 14 Blood Pressure 102/58 L 101/56 L Pulse Oximetry 96 96 Oxygen Flow Rate 0 0 Oxygen Delivery Method Room Air Oxygen Flow Rate 0 Const General: cooperative and comfortable Nutritional Appearance: average body habitus Orientation: alert and oriented x3 HENMT Head: normal to inspection, atraumatic and abrasion Ears: hearing grossly normal bilaterally Face and sinus: face symmetric Eyes General: appearance normal, both eyes and all related structures Conjunctivae: conjunctivae normal Sclera: sclerae normal EOM: EOM intact bilaterally Neck Neck: normal visual inspection Resp Effort & Inspection: normal respiratory effort and able to speak in complete sentences Auscultation: clear to auscultation bilaterally Cardio Rate: regular rate Rhythm: regular rhythm Heart Sounds: S1 normal, S2 normal and no murmurs GI Inspection: normal to inspection and incision (Surgical dressings clean and dry) Palpation: soft, no hepatosplenomegaly and tender (Mild, diffuse postsurgical tenderness) External Female Exam: other (No significant bleeding noted) Extrem General: no calf tenderness Psych Appearance: grossly normal Mental Status: mental status grossly normal Speech and Movement: speech and movement normal Mood: congruent mood Affect: normal affect Attitude: cooperative Thought Process: normal Thought Content: normal Judgment: judgment good Objective Labs 08/13/24 04:07 Labs: Laboratory Results - last 24 hr 08/13/24 04:07 WBC 14.4 H RBC 4.58 Hgb 13.2 Hct 39.7 MCV 86.7 MCH 28.9 MCHC 33.4 RDW 13.8 Plt Count 364 Neut % (Auto) 82.3 H Lymph % (Auto) 11.7 L [place] % (Auto) 5.7 Eos % (Auto) 0.1 L Baso % (Auto) 0.2 Neut # (Auto) 89880 H Lymph # (Auto) 1700 [place] # (Auto) 800 Eos # (Auto) 0 Baso # (Auto) 0 PFSH Medical History Ruptured ovarian cyst Pyelonephritis (07/20/24) Perimenopausal symptoms Painless hematuria Achilles tendinitis of left lower extremity Gastritis Pancreatitis, acute Keloid scar Hyperlipidemia Depression Insomnia History of Lyme disease Arthritis Fatigue Endometriosis Family history of breast cancer gene mutation in first degree relative Chronic neck pain ADHD (attention deficit hyperactivity disorder) Surgical History History of partial hysterectomy (2007) H/O cervical spine surgery Family History Father Diabetes mellitus Stroke Osteoarthritis Grandmother Osteoarthritis Heart disease Uterine cancer Sister Depression Fibromyalgia Cancer Social History household members: spouse Smoking Status: Never smoker alcohol intake: never Discharge Assessment & Plan Assessment and Plan Assessment: Chronic pelvic pain BRCA mutation positive Status post total laparoscopic hysterectomy with right salpingo oophorectomy, left oophorectomy Plan of Treatment: Routine postoperative care with follow-up planned for 2 weeks after surgery Discharge Plan Discharge Plan Patient Disposition: Home Provider Discharge Comment: Please review the written instructions you received when you were discharged from the hospital. Your follow-up appointment is scheduled for 2 weeks after your surgery and I look forward to seeing you then. If however in the meanwhile you have any issues, concerns, or questions, please contact me either through the office phone at [phone], or via the patient portal. Discharge orders & Medications Discharge Orders: Discharge (Order); Ordered 08/13/24 Ordered By: Cody Malik Prescriptions: New estradiol [Yolis] 0.075 mg/24 hr patch semiweekly 1 patch transdermal 2XW Qty: 8 12RF Rx Instructions: apply 1 patch for 3 days alternating with 1 patch for 4 days each week progesterone micronized [Prometrium] 200 mg capsule 200 mg PO QPM Qty: 30 12RF ciprofloxacin HCl [Cipro] 500 mg tablet 500 mg PO BID 5 Days Qty: 10 0RF Continued levonorgestrel-ethinyl estrad 0.15 mg-30 mcg (91) tablets,dose pack,3 month 1 tab PO DAILY Qty: 91 2RF citalopram 20 mg tablet 40 mg PO DAILY Qty: 180 1RF trazodone 100 mg tablet 100 mg PO BEDTIME PRN (Reason: sleep) Qty: 90 1RF lisdexamfetamine 40 mg capsule 40 mg PO DAILY Qty: 30 0RF Rx Instructions: Refill 1 hydrocodone-acetaminophen 5-325 mg tablet 1 tab PO BID PRN (Reason: pain) Qty: 60 0RF methocarbamol 750 mg tablet 750 mg PO ONCE PM Qty: 60 1RF mecobalamin (vitamin B12) 1 tab PO DAILY No Action oxycodone 5 mg tablet 5 mg PO Q4-6H PRN (Reason: pain) Qty: 15 0RF atorvastatin 20 mg tablet 20 mg PO ONCE PM Qty: 90 3RF meloxicam 15 mg tablet 15 mg PO DAILY Qty: 30 1RF Follow up/Referrals: Rocael Villanueva DO [Primary Care Provider] - Cody Malik MD [Physician] - Diet/Activity/Treatments Diet: Diet as Tolerated Activity: As Other treatments: [id number] Tylenol and/or ibuprofen may be used as needed for additional pain relief. Rkze-jyh-[id number] stool softeners and/or MiraLax may be used as needed for constipation. Skin/Wound/Dressing Care Report to your healthcare provider any signs of infection, such as:: chills, fever, increased pain, unusual drainage and unusual redness Dressing: Dressings should be removed on the morning of 08/14/2024 Visit Report/Discharge Packet Instructions: DI for Hysterectomy, DI for Laparoscopy, DI for Prescription Opioid Use Stand Alone Forms: Surgery Discharge Print Language: Beninese Discharge Data Primary Care Provider: Rocael Villanueva Attending Provider: Cody Malik VTE Deep Vein Thrombosis/Pulmonary Embolism Present on Admission: No I[facility] PROFEE Charge Codes Discharge inpatient/observation: [id number]
--- NOTE | 2024-08-13 12:15 | PC.NURSE ---
D/c instructions reviewed with pt and spouse including post op precautions, and no driving while taking narcotics. Discussed using OTC stool softeners and drinking more fluids in order to prevent constipation. IV removed. Confirmed that pt has packed all of her personal belongings. Pt will d/c home via private vehicle with spouse.
--- NOTE | 2024-08-13 12:38 | CM.DANOTE ---
DCP Assessment Note: Pt is a 49yo female, resident of [place], is s/p laparoscopic total hysterectomy. Pt lives in a house with her , Vahid. Pt's Primary Care Provider is Dr. Rocael Villanueva and insurance is [employer] and Self pay. Reviewed chart and discussed with multidisciplinary team pt's medical status and initial discharge needs. Discharge orders are in on 08/13/24. Brief assessment of EMR, No needs identified at this time. Plan: Anticipating discharge home with spouse when medically stable. CM team will follow closely for coordination of discharge plans. Amy Solano SPLICING TECHNICIAN Discharge Planning/Care Management CM Discharge Assessment Start: 08/13/24 12:36 Freq: Status: Active Protocol: Document 08/13/24 12:36 MW (Rec: 08/13/24 12:38 MW [email or web address]) Discharge Planning Assessment Assigned Furnace Combustion Tester ZACHARIAH Reyes DPOA/Assigned Designee Name Vahid Mary, Contact Information [phone] Advance Directives? No Advance Directives on File No History Provided By Patient,Medical Record Prior Living Arrangements House Comment [place] Household Members spouse Type of transporation used prior to Drives own vehicle admit Independent with ADL's Yes Is patient alert and oriented? Yes Discharge Plan Home Referrals Initiated None needed Review Status In Process Please Provide Date Initial DC 08/13/24 Assessment Was Performed Next Review Type Continued Stay Review
== END 2024-08-13 13:17 | disposition home or self-care (01) ==
LOC: OR 10:08 → AC 10:09
PROVIDERS: PCP Family Medicine; Referring Provider Obstetrics & Gynecology; Visit Provider Obstetrics & Gynecology
PROC: 0UT94ZZ Resection of Uterus, Percutaneous Endoscopic Approach (ICD-10-PCS; CPT 58571; principal; 2024-08-12 11:45)
DX: D25.1 Intramural leiomyoma of uterus (principal); G89.29 Other chronic pain; D25.0 Submucous leiomyoma of uterus; R10.2 Pelvic and perineal pain; E78.5 Hyperlipidemia, unspecified; F90.9 Attention-deficit hyperactivity disorder, unspecified type; F32.A Depression, unspecified; Z87.42 Personal history of other diseases of the female genital tract; Z80.3 Family history of malignant neoplasm of breast
CPT/HCPCS: 58571; 36415; 85025; J0330; J0690; J1100; J1171; J1885; J2250; J2405; J2704; J3010; J3490

== ENCOUNTER → 2024-10-30 08:12 | Outpatient (CLI) | payer OTHER, SELFPAY ==
[2024-08-12 14:12] VITALS: BMI 28.6
--- NOTE | 2024-10-30 08:15 | DI.MG.S_ITS ---
MM screening mammo BI: 10/30/2024. BI-RADS: 1 CLINICAL: 49-year old female for bilateral screening mammogram. Tyrer-Cuzick lifetime risk of 24.1%. Current reported family history of breast cancer: sister, second sister, maternal aunt and daughter of uncle. History of ovarian cancer in one first-degree relative. The patient reports testing negative for BRCA gene mutation. PRIOR EXAMS 03/13/2024, 08/02/2023, 07/09/2022, 07/07/2021. MAMMOGRAPHY TECHNIQUE: 2D and 3D (tomosynthesis) digital mammographic views obtained, with additional images as needed for full coverage. Current study was also evaluated with a Computer Aided Detection (CAD) system. DENSITY C. The breasts are heterogeneously dense, which may obscure small masses. MAMMOGRAPHY FINDINGS Bilateral: No suspicious mass, asymmetry, microcalcification, or other abnormality seen. No significant change from comparison. IMPRESSION: * No evidence of malignancy. RECOMMENDATIONS Bilateral * According to the Tyrer-Cuzick Risk Assessment Model, based on the information provided your patient has a greater than 20% lifetime risk for developing breast cancer. Consider supplemental screening with breast MRI and participation in a high risk screening program. * Annual screening mammography. OVERALL ASSESSMENT CATEGORY BI-RADS-1: Negative. The [employer] recommends annual screening mammography beginning at age 40 for women with average risk of breast cancer. ELECTRONICALLY SIGNED: Mariola Brooks M.D. on 11/01/2024 at 11:33:03 AM PT Interpreting Station ID: [id number]
== END ==
LOC: MAMMO 08:14
PROVIDERS: PCP Family Medicine; Referring Provider Family Medicine; Visit Provider Family Medicine
DX: Z12.31 Encounter for screening mammogram for malignant neoplasm of breast (principal); R92.333 Mammographic heterogeneous density, bilateral breasts; Z80.3 Family history of malignant neoplasm of breast; Z80.41 Family history of malignant neoplasm of ovary
CPT/HCPCS: 77063; 77067

== ENCOUNTER → 2025-05-31 15:10 | Outpatient (CLI) | payer OTHER, SELFPAY ==
[2024-08-12 14:12] VITALS: BMI 28.6
--- NOTE | 2025-05-31 15:10 | DI.RAD.S_ITS ---
PROCEDURE: XR CHEST 2V
== END ==
PROVIDERS: PCP Family Medicine; Referring Provider Family Medicine; Visit Provider Family Medicine
DX: R05.9 Cough, unspecified (principal); Z98.1 Arthrodesis status
CPT/HCPCS: 71046